=== PATIENT | male | born 1945 | race African-American/Black ===

== ENCOUNTER 2018-07-17 15:59 | Inpatient (IN) | payer BC, MEDICARE ==
[~2018-07-17] VITALS: Ht 177.8 cm; Wt 64.0 kg
--- NOTE | 2018-07-17 16:00 | NUR ---
[facility] FOR FAST HEART RATE PRIOR TO DIALYSIS. NOTED DIAPHORETIC. FEBRILE. NOTED BILATERAL AKA, COLOSTOMY BAG, PRESSURE SORE IN THE BACK WITH NOTED SOILED DRESSING. NOTED PICC LINE DOUBLE LUMEN ON RIGHT CHEST WALL. AT BS FOR EVAL. SAFETY AND COMFORT MEASURES PROVIDED. WILL MONITOR.
--- NOTE | 2018-07-17 16:20 | NUR ---
BLOOD DRAWN FROM PICC LINE. FC INITIATED NO OUTPUT NOTED PER MD TO LEAVE CATHETER IN PLACE.
--- NOTE | 2018-07-17 16:51 | NUR ---
CALLED NURSING ANIMATOR AND REQUESTED A TELE BED FOR THIS PT.
[2018-07-17] MEDS ORDERED: PIPERACILLIN /TAZOBACTAM 3.375 G in IV D5W 50 ML IV ONE (17:00)
[2018-07-17] MEDS ORDERED: VANCOMYCIN 1 GM in IV D5W 250 ML IV ONE (17:00)
[2018-07-17] MEDS ORDERED: IV NS 0.9% 1,000 ML BAG IV ONE (17:00)
[2018-07-17] MEDS ORDERED: ACETAMINOPHEN 650 MG/SUPP.RECT RC ONE ×2 (17:00→17:08)
[2018-07-17] MEDS ORDERED: ACETAMINOPHEN 120 MG/SUPP.RECT RC ONE (17:08)
[2018-07-17 17:10] LABS: BASOPHILS # (AUTO) 0.1 /CMM (0.0-0.2); BASOPHILS % (AUTO) 0.3 % (0.0-2.0); HEMATOCRIT 36 % (39-51); HEMOGLOBIN 11.1 g/dL (13.5-17.5); LYMPHOCYTES # (AUTO) 1.5 /CMM (0.8-4.8); LYMPHOCYTES % (AUTO) 6.2 % (20.0-44.0); MEAN CORPUSCULAR HGB CONC 31 g/dl (31.0-36.0); MEAN CORPUSCULAR VOLUME 88 fL (80-96); MONOCYTES # (AUTO) 1.2 /CMM (0.1-1.30); MONOCYTES % (AUTO) 4.9 % (2.0-12.0); NEUTROPHILS # (AUTO) 21.7 /CMM (1.8-8.9); NEUTROPHILS % (AUTO) 86.6 % (43.0-81.0); PLATELET COUNT (AUTO) 497 /CMM (150-450); RDW COEFFICIENT OF VARIATION 20.7 (11.5-15.0); RED BLOOD CELL COUNT(AUTO) 4.03 MIL/uL (4.5-6.0)
[2018-07-17 17:17] LABS: CALCIUM, SERUM 10.7 mg/dL (8.5-10.1); CARBON DIOXIDE 28 mmol/L (21-32); CHLORIDE 105 mmol/L (98-107); CREATININE 5.1 mg/dL (0.6-1.3); GLUCOSE 311 mg/dL (74-106); POTASSIUM 3.3 mmol/L (3.5-5.1); SODIUM SERUM 148 mmol/L (136-145)
[2018-07-17 17:19] LABS: UREA NITROGEN, BLOOD 80 mg/dL (7-18)
[2018-07-17 17:23] LABS: ALANINE AMINOTRANSFERASE 23 U/L (12-78); ALBUMIN 2.6 g/dL (3.4-5.0); ALKALINE PHOSPHATASE 164 U/L (46-116); ASPARTATE AMINOTRANSFERASE 16 U/L (15-37); BILIRUBIN,DIRECT 0.1 mg/dL (0.0-0.2); BILIRUBIN,TOTAL 0.4 mg/dL (0.2-1.0); INR 1.06 (0.85-1.15); TOTAL PROTEIN, SERUM 8.5 g/dL (6.4-8.2)
[2018-07-17 17:25] LABS: TROPONIN I < 0.017 ng/mL (0.00-0.056)
--- NOTE | 2018-07-17 18:17 | NUR ---
PT'S BUTTOCKS PRESSURE SORE DRESSING CHANGED, COVERED. KEPT CLEAN AND DRY.
[2018-07-17] MEDS ORDERED: INSU100V11 SQ (18:35)
[2018-07-17] MEDS ORDERED: ATOR40TA GT (18:35)
[2018-07-17] MEDS ORDERED: INSU100I19 SQ (18:35)
[2018-07-17] MEDS ORDERED: ALLO100T GT (18:35)
[2018-07-17] MEDS ORDERED: MIDO10TA GT (18:35)
[2018-07-17] MEDS ORDERED: TOPI25TA49 GT (18:35)
--- NOTE | 2018-07-17 18:48 | NUR ---
CALLED [facility] FOR PANEL CALL AND DR MAS WAS PAGED.
--- NOTE | 2018-07-17 18:58 | NUR ---
Della henry in [facility] - 07/17/18 at 1859 by SAMSON VIRGINIA CALDWELL HAT AND CAP OPENERLORE HERNANDEZ NP
--- NOTE | 2018-07-17 19:00 | NUR ---
PT IS ASSIGNED TO [facility] RM#: [id number], DX: SEPSIS, AND ACCEPTING MD: DR MAS.
[2018-07-17] MEDS ORDERED: IV NS 0.9% 1,000 ML IV PRN (19:02)
[2018-07-17 19:04] LABS: APPEARANCE,URINE Clear (CLEAR); BILIRUBIN,URINE SMALL (NEGATIVE); BLOOD, URINE Large Ery/uL (NEGATIVE); COLOR,URINE Yellow (YELLOW); KETONES,URINE Negative (NEGATIVE); LEUKOCYTE ESTERASE ,URINE Large (NEGATIVE); NITRITE, URINE Positive (NEGATIVE); PH,URINE 7.5 (5.0-8.0); PROTEIN,URINE >=300 mg/dl (NEGATIVE); UGLUCOSE Negative (NEGATIVE); UROBILINOGEN,URINE 0.2 EU/dL (0.2)
--- NOTE | 2018-07-17 19:17 | NUR ---
UPDATE: PT IS ASSIGNED TO [facility]#: [id number]
--- NOTE | 2018-07-17 19:24 | NUR ---
REPORT GIVEN TO MATTHEW BUSTAMANTE FOR RAMON.
[2018-07-17] MEDS ORDERED: MAG HYDROX/AL HYDROX/SIMETH 30 ML UDC PO PRN (19:30)
[2018-07-17] MEDS ORDERED: ZOLPIDEM TARTRATE 5 MG TABLET PO PRN (19:30)
[2018-07-17] MEDS ORDERED: MAGNESIUM HYDROXIDE 30 ML UDC PO PRN (19:30)
[2018-07-17] MEDS ORDERED: ONDANSETRON HCL/PF 4 MG/2 ML VIAL IVP PRN (19:30)
[2018-07-17 19:32] LABS: BACTERIA,URINE 4+ /HPF (None Seen); RBC,URINE TOO NUMEROUS TO COUN /HPF (0-2); SQUAMOUS EPITHELIAL CELL,UR Few /HPF (None Seen); WBC,URINE TOO NUMEROUS TO COUN /HPF (0-3)
[2018-07-17 20:00] VITALS: BP 136/84
[2018-07-17] MEDS ORDERED: FEE PK DOSING 1 MIN EA MC ONE (20:04)
--- NOTE | 2018-07-17 20:20 | NUR ---
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, RIGHT IJ CENTRAL VENOUS CATH IN PLACED, WITH TRACH IN COOL AEROSOL, PATIENT WITH EYES OPEN, NONVERBAL, NOT ORIENTED, BREATHING EVEN AND UNLABORED, NO S/S OF ANY SOB/ACUTE DISTRESS NOTED AT THIS TIME, ABDOMEN SOFT AND NONDISTENDED, NOTED GT IN PLACED SLIGHTLY BLEEDING AROUND SITE, NO REDISUAL AT THIS TIME, COLOSTOMY IN PLACE WITH MINIMAL BROWNISH COLOR STOOL, F/SHASHI PLACE NOTED, PATENTCY INTACT NO OUTPUT NOTED SINCE HD PATIENT BUT NOTED 5ML YELLOW COLOR URINE, WOUNDS CLEAN WITH NORMAL SALINE AND PACKED AND WELL DRESSED, NOTED ACTIVE BLEEDING I WOUNDS, DR MAS AT BEDSIDE UPON ADMISSION AND AWARE ABOUT THIS, WITH NNO AT THIS TIME, BED BATH GIVEN UPON ADMISSION, DRY AND CLEAN, BED LOCKED AND LOW POSITION, HOB ELEVATED FOR ASPIRATION PRECAUTIONS, REPOSITION PROVIDED, WILL CONTINUE TO MONITOR CLOSELY.
[2018-07-17] MEDS: MIDODRINE HCL (5MG) 5 MG TABLET GT SCH (20:30)
[2018-07-17] MEDS: ALLOPURINOL 100 MG TABLET GT SCH (21:28)
[2018-07-17] MEDS: ATORVASTATIN 40 MG TABLET GT SCH (21:28)
[2018-07-17] MEDS: TOPIRAMATE 25 MG TABLET GT SCH (21:29)
[2018-07-17] MEDS: INSULIN DETEMIR 100 UNIT/ML CARTRIDGE SQ SCH (21:47)
[2018-07-17] MEDS ORDERED: NEPRO 1,000 ML BOTTLE GT SCH (22:30)
--- NOTE | 2018-07-17 23:34 | NUR ---
PT REC'D TRACH ON T-PIECE 4LPM. PT PLACED ON COOL AEROSOL 28% 5LPM. NO RESP DISTRESS NOTED. SX'D MOD AMT OF THICK FROTHY WHITE SECRETIONS. TRACH PATENT AND SECURED. AMBU BAG BEDSIDE WILL CONTINUE TO MONITOR. Addendum: 07/18/18 at 0512 by ALISHA NICOLAS RT Amended: Links added.
[2018-07-17] MEDS: PIPERACILLIN /TAZOBACTAM 2.25 G in IV D5W 50 ML IV SCH (23:52)
[2018-07-17] MEDS: HYDROCODONE/APAP 5/325MG 1 EACH TABLET PO PRN (23:52)
--- NOTE | 2018-07-17 23:56 | NUR ---
RN PT DIABETIC, CASSIUS MCMILLAN AWARE WITH NEW ORDER OF ACCUCHECK Q 6HRS GTF WITH MILD SLIDING SCALE.
[2018-07-18] VITALS (88 sets, daily range): BP systolic 68–140; BP diastolic 34–79
[2018-07-18] MEDS ORDERED: DEXTROSE 50%-WATER 50 ML DISP.SYRIN IV PRN
[2018-07-18] MEDS: BLOOD SUGAR DIAGNOSTIC 1 EACH STRIP IN SCH ×4 (00:17→17:15)
[2018-07-18] MEDS: INSULIN REGULAR, HUMAN 100 UNIT/ML 3 ML VIAL SQ PRN ×4 (00:22→17:27)
--- NOTE | 2018-07-18 00:40 | NUR ---
RN TD NOTES, NOTED PATIENT WITH HR 126, BP 78/37, CHECKED RECTAL TEMP AND 99.6, NOTES EXCESSIVE BLEEDING FROM THE SACRAL AND RIGHT BUTTOCKS WOUND, NOTED WITH RAPID BREATHING AND O2 94%, RT PLACED PATIENT IN 35% FIO2, AT 8L, CALLED CASSIUS, PHOTO MACHINE OPERATOR AND RECEIVED ORDER TO TRANSFER PATIENT TO ICU STAT H&H, AND START LEVOPHED DRIP AND TITRATE TO KEEP SBP GREATER THAN 90. NOTED AND CARRIED OUT ON CONTINUOUS MONITOR.
--- NOTE | 2018-07-18 00:50 | NUR ---
RN [facility] NOTES, GAVE REPORT TO SUSHIL FROM ICU AND ENDORSED CONTINUITY OF CARE AND LEVOPHED DRIP ADMINISTRATION.
--- NOTE | 2018-07-18 00:55 | NUR ---
RN [facility] NOTES, TRANSFERRED PATIENT TO ICU AT THIS TIME IN COMPANY OF 3 RNS, AND RT FOR CONTINUITY OF CARE, PATIENT PLACED IN ROOM 252, SUSHIL AND 2RNS AT BEDSIDE.
--- NOTE | 2018-07-18 01:00 | NUR ---
PIPELINE CONSTRUCTION INSPECTOR RCD PT FROM [facility] FOR HYPOTENSION AND BLEEDING FROM SACRAL AREA. PT IS AWAKE APHASIC DOES NOT FOLLOW COMMANDS. 8L O2 VIA T PIECE. ST 120s ON MONITOR. G TUBE CLAMPED. CONTINUE TO MONITOR.
[2018-07-18 01:14] LABS: BASOPHILS # (AUTO) 0.1 /CMM (0.0-0.2); BASOPHILS % (AUTO) 0.3 % (0.0-2.0); EOSINOPHILS % (AUTO) 1.9 % (0.0-6.0); HEMATOCRIT 29 % (39-51); HEMOGLOBIN 8.8 g/dL (13.5-17.5); LYMPHOCYTES # (AUTO) 2.1 /CMM (0.8-4.8); LYMPHOCYTES % (AUTO) 8.5 % (20.0-44.0); MEAN CORPUSCULAR HGB CONC 30 g/dl (31.0-36.0); MEAN CORPUSCULAR VOLUME 90 fL (80-96); MONOCYTES # (AUTO) 1.1 /CMM (0.1-1.30); MONOCYTES % (AUTO) 4.5 % (2.0-12.0); NEUTROPHILS # (AUTO) 21.3 /CMM (1.8-8.9); NEUTROPHILS % (AUTO) 84.8 % (43.0-81.0); PLATELET COUNT (AUTO) 422 /CMM (150-450); RDW COEFFICIENT OF VARIATION 21.4 (11.5-15.0); RED BLOOD CELL COUNT(AUTO) 3.21 MIL/uL (4.5-6.0); WHITE BLOOD COUNT (AUTO) 25.2 K/uL (4.3-11.0)
[2018-07-18] MEDS ORDERED: NOREPINEPHRINE 4 MG/4 ML AMPUL IV ONE (01:22)
[2018-07-18 01:30] LABS: ALANINE AMINOTRANSFERASE 17 U/L (12-78); ALBUMIN 2.2 g/dL (3.4-5.0); ALKALINE PHOSPHATASE 131 U/L (46-116); ASPARTATE AMINOTRANSFERASE 19 U/L (15-37); BILIRUBIN,TOTAL 0.4 mg/dL (0.2-1.0); CALCIUM, SERUM 9.7 mg/dL (8.5-10.1); CARBON DIOXIDE 22 mmol/L (21-32); CHLORIDE 106 mmol/L (98-107); CREATININE 4.9 mg/dL (0.6-1.3); GLUCOSE 333 mg/dL (74-106); MAGNESIUM 2.3 mg/dL (1.8-2.4); PHOSPHORUS 4.2 mg/dL (2.5-4.9); POTASSIUM 3.4 mmol/L (3.5-5.1); SODIUM SERUM 148 mmol/L (136-145); TOTAL PROTEIN, SERUM 7.3 g/dL (6.4-8.2)
[2018-07-18] MEDS: NOREPINEPHRINE 16 MG in IV D5W 500 ML IV PRN ×2 (01:31→09:51)
[2018-07-18 01:32] LABS: CHOLESTEROL 72 mg/dL (<200); HDL CHOLESTEROL 22 mg/dL (40-60); LDL 37 mg/dL (0-99); TRIGLYCERIDES 92 mg/dL (30-150)
[2018-07-18 01:44] LABS: UREA NITROGEN, BLOOD 86 mg/dL (7-18)
[2018-07-18 01:49] LABS: EOSINOPHILS % (MANUAL) 3 % (0-4); LYMPHOCYTES % (MANUAL) 6 % (16-48); MONOCYTES % (MANUAL) 2 % (0-11.0); NEUTROPHILS % (MANUAL) 89 (42-76)
--- NOTE | 2018-07-18 07:02 | NUR ---
MARKETING OPERATIONS CONSULTANT STARTED LEVOPHED AT 1 MCG/MIN FOR SBP 79; GOAL TO MAINTAIN SBP >90. CONTINUE TO MONITOR. Addendum: 07/18/18 at 0703 by SUSHIL MENEZES RN [id number]
--- NOTE | 2018-07-18 07:15 | NUR ---
RECEIVED PATIENT. AWAKE AND ALERT AT TIMES FOLLOWS COMMANDS. PATIENT T PIECE ON 5LPM TOLERATING WELL. NO NOTED SOB, DIFFICULTY BREATHING OR PAIN. PORTEX 7. TELE SINUS TACH 115; PER RN IMPROVED FROM TACHY 130'S. PENDING WOUND CONSULT FOR EXTENSIVE WOUND NOTED ON ANJANA/SACRUM/BUTTOCKS. NEPHRO RUNNING PER ORDER TOLERATING WELL; PENDING DIETARY CONSULT. LUE FISTULA BRUIT AND THRILL PRESENT. PATIENT IJ PICC IN PLACE C/D/I/P/BLOOD RETURN. IV FLUIDS RUNNING PER ORDER. PATIENT LEVO RUNNING PER ORDER WILL TITRATE PER PROTOCOL. PATIENT SKIN SAFETY, AND ASPIRATION PRECAUTIONS IN PLACE. WILL ROUND
[2018-07-18] MEDS: PIPERACILLIN /TAZOBACTAM 2.25 G in IV D5W 50 ML IV SCH ×2 (07:30→16:20)
--- NOTE | 2018-07-18 07:34 | NUR ---
dr fowler at bedside. aware of patient am labs at 0100. per md patient pending nephro eval for hd orders. pending wound consult for back wound; possible surgery eval pending eval. monitor h&h transfuse if under 7hgb.
--- NOTE | 2018-07-18 07:36 | NUR ---
per wound rn sunshine juarez aware of consult and will see patient.
[2018-07-18] MEDS: ACETAMINOPHEN 325 MG TABLET PO PRN (08:20)
[2018-07-18] MEDS: TOPIRAMATE 25 MG TABLET GT SCH (08:20)
[2018-07-18] MEDS: ALLOPURINOL 100 MG TABLET GT SCH (08:20)
[2018-07-18] MEDS: MIDODRINE HCL (5MG) 5 MG TABLET GT SCH ×3 (08:21→17:15)
[2018-07-18] MEDS: Z GUARD REMEDY 2 OZ OINT TP PRN (08:22)
[2018-07-18] MEDS ORDERED: NEPRO 1,000 ML BOTTLE GT SCH (08:30)
--- NOTE | 2018-07-18 08:40 | NUR ---
RT PATIENT REC'D TRACHED ON COOL AEROSOL TOLERATED WELL. PATIENT NON RESPONSIVE, NO SOB NOTED. SUCTIONED WITH SMALL AMT OF PALE SEMITHICK SECRETIONS.
--- NOTE | 2018-07-18 08:57 | NUR ---
CHANTELL SANDOVAL AT BEDSIDE. PATIENT SCHEDULED FOR HD TODAY.
--- NOTE | 2018-07-18 09:06 | NUR ---
PER PLEASE DC PATIENT PALOMARES CATH.
--- NOTE | 2018-07-18 09:13 | NUR ---
PALOMARES CATH REMOVED. CATH TIP INTACT. NO COMPLICATIONS NOTED
[2018-07-18] MEDS ORDERED: POTASSIUM CHLORIDE 20 MEQ TAB.PRT.SR PO ONE (09:30)
[2018-07-18] MEDS ORDERED: EPOETIN ALFA (10,000 UNIT) 10,000 UNIT/ML VIAL IV ONE (11:00)
[2018-07-18] MEDS ORDERED: DAKINS QUARTER STRENGTH (0.125%) 480 ML BOTTLE TOP PRN (13:00)
[2018-07-18] MEDS: MUPIROCIN OINT 2% 22 GM TUBE SCH ×2 (13:00→21:32)
--- NOTE | 2018-07-18 13:02 | NUR ---
HD COMPLETED. NO FLUID REMOVED. PATIENT TOLERATED WELL. BP STABLE. PER [place] FAMILY AND CONSUMER SCIENCES TEACHER SACRAL/BUTTOCK WOUNDS APPLY DAKINS SOAKED GAUZE AND COVER WITH DRY DRESSING. PER FAMILY AND CONSUMER SCIENCES TEACHER WILL PLAN FOR DEBRIDEMENT. CHANGE DAILY/PRN SOILING.
[2018-07-18] MEDS: SOD FERRIC GLUC 125 MG in IV NS 0.9% 100 ML IV SCH (13:48)
[2018-07-18] MEDS ORDERED: VANCOMYCIN 1 GM in IV D5W 250 ML IV ONE (14:00)
[2018-07-18] MEDS ORDERED: DAKINS QUARTER STRENGTH (0.125%) 480 ML BOTTLE TOP SCH (15:30)
--- NOTE | 2018-07-18 16:20 | NUR ---
BED BATH COMPLETED AGAIN, WOUND CARE PER ORDER. PATIENT DIAPHORETIC AGAIN. COOLING MEASURES INITIATED. CORE TEMP MONITOR STARTED. 100.4 WILL MONITOR.
[2018-07-18] MEDS: LACTOBACILLUS RHAMNOSUS GG 1 EACH CAP.SPRINK GT SCH (17:15)
--- NOTE | 2018-07-18 18:45 | NUR ---
PATIENT STABLE. TEMP DECREASING WITH COOLING MEASURES 99.0 AT THIS TIME. LEVO PAUSED AND PATIENT TOLERATING AT THIS TIME CONTINUING TO MONITOR. TUBE FEEDING PER ORDER NO RESIDUAL NOTED. COLOSTOMY IN PLACE AND C/D/I. IV SITE C/D/I/P GOOD BLOOD RETURN. LEFT UA FISTULA POSITIBE BRUIT/THRILL. PATIENT HAS COPIOUS AMOUNTS OF THICK SECRETION NEEDING FREQUENT SUCTIONING. PATIENT SAFETY, ASPIRATION, AND SKIN PRECAUTIONS IN PLACE AND MONITORED. ISOLATION MONITORED. PETER UPDATED ON PATIENT CONDITION, MED, VS. NO NEW ORDERS AT THIS TIME
[2018-07-18] MEDS ORDERED: VANCOMYCIN 500 MG in IV D5W 100 ML IV PRN (20:00)
--- NOTE | 2018-07-18 20:06 | NUR ---
PT RECEIVED TRACHED PTX 7 ON COOL AEROSOL 8L 35%. SX'D FOR MOD AMT OF THIN WHITE SECRETIONS. B/S CL/DM. O2 SAT 97%. WILL CONTINUE TO MONITOR. Addendum: 07/18/18 at 2008 by BIRGIT BYRNE RT Amended: Links added.
[2018-07-18] MEDS ORDERED: MUPIROCIN OINT 2% 22 GM TUBE SCH (21:00)
[2018-07-18] MEDS: ATORVASTATIN 40 MG TABLET GT SCH (21:31)
[2018-07-18] MEDS: MEROPENEM 500 MG in IV NS 0.9% 50 ML IV SCH (21:32)
[2018-07-18] MEDS: INSULIN DETEMIR 100 UNIT/ML CARTRIDGE SQ SCH (21:41)
[2018-07-19] VITALS (67 sets, daily range): BP systolic 95–133; BP diastolic 38–72
[2018-07-19] MEDS: BLOOD SUGAR DIAGNOSTIC 1 EACH STRIP IN SCH ×4 (00:41→18:10)
[2018-07-19] MEDS: INSULIN REGULAR, HUMAN 100 UNIT/ML 3 ML VIAL SQ PRN ×4 (00:45→18:11)
[2018-07-19 04:39] LABS: BASOPHILS # (AUTO) 0.1 /CMM (0.0-0.2); BASOPHILS % (AUTO) 0.4 % (0.0-2.0); EOSINOPHILS % (AUTO) 3.3 % (0.0-6.0); HEMATOCRIT 25 % (39-51); HEMOGLOBIN 7.7 g/dL (13.5-17.5); LYMPHOCYTES # (AUTO) 2.4 /CMM (0.8-4.8); LYMPHOCYTES % (AUTO) 9.4 % (20.0-44.0); MEAN CORPUSCULAR HGB CONC 30 g/dl (31.0-36.0); MEAN CORPUSCULAR VOLUME 90 fL (80-96); MONOCYTES # (AUTO) 1.1 /CMM (0.1-1.30); MONOCYTES % (AUTO) 4.4 % (2.0-12.0); NEUTROPHILS # (AUTO) 21.3 /CMM (1.8-8.9); NEUTROPHILS % (AUTO) 82.5 % (43.0-81.0); PLATELET COUNT (AUTO) 402 /CMM (150-450); RDW COEFFICIENT OF VARIATION 22.3 (11.5-15.0); RED BLOOD CELL COUNT(AUTO) 2.79 MIL/uL (4.5-6.0); WHITE BLOOD COUNT (AUTO) 25.9 K/uL (4.3-11.0)
[2018-07-19 04:47] LABS: CALCIUM, SERUM 9.5 mg/dL (8.5-10.1); CARBON DIOXIDE 26 mmol/L (21-32); CHLORIDE 107 mmol/L (98-107); CREATININE 3.8 mg/dL (0.6-1.3); GLUCOSE 296 mg/dL (74-106); PHOSPHORUS 3.3 mg/dL (2.5-4.9); POTASSIUM 3.9 mmol/L (3.5-5.1); SODIUM SERUM 144 mmol/L (136-145); UREA NITROGEN, BLOOD 62 mg/dL (7-18)
--- NOTE | 2018-07-19 06:30 | NUR ---
ASSISTANT PROFESSOR OF RADIOLOGY - REC'D PT. ON T-PIECE AT 40%/8L. RHONCHI AUSC. TO ALL LOBES. PT.IS ISOLATION: MRSA/NARES. AFEBRILE FOR SHIFT. PT. IS A BAKA. ALL EXT.X 4 ARE ELEVATED ON PILLOWS. PT.IS VERY RIGID TO REPOSITION. STAGE IV TO SACRAL/BUTTOCK AREAS. A COMPLETE BEDBATH ADM. WITH TOTAL SKIN/WOUND CARE ADM. COLOSTOMY BAG CHANGED. ANURIC. PT.IS PEGGED WITH NEPRO INFUSING AT 50CC/HR. GOAL. PT. USES FACIAL EXPRESSIONS TO COMMUNICATE. PT. HAS ACCUCHECKS Q 6 HRS & MN & 6AM- BOTH WERE IN THE 200'S. PT.HAS +BRUIT-+THRILL. CONT.POC.
--- NOTE | 2018-07-19 07:28 | NUR ---
RECEIVED PATIENT. AWAKE AND ALERT AT TIMES FOLLOWS COMMANDS; PASSIVE. PATIENT T PIECE ON 8LPM TOLERATING WELL.99% AT THIS TIME. NO NOTED SOB, DIFFICULTY BREATHING OR PAIN. PORTEX 7. PATIENT HAS LARGE AMOUNTS OF THICK YELLOW SECRETION REQUIRING FREQUENT SUCTIONING. TELE SINUS TACH 104 TACHYCARDIA IMPROVED OVERNIGHT PER RN. PENDING WOUND DEBRIDEMENT TODAY FOR EXTENSIVE WOUND NOTED ON SACRUM/BUTTOCKS. NEPHRO RUNNING PER ORDER TOLERATING WELL. LUE FISTULA BRUIT AND THRILL PRESENT. PATIENT IJ PICC IN PLACE C/D/I/P/BLOOD RETURN. PATIENT STILL OFF LEVO SINCE 1814 LAST NIGHT. PATIENT SKIN SAFETY, AND ASPIRATION PRECAUTIONS IN PLACE. WILL ROUND PRN
[2018-07-19] MEDS: NEPRO 1,000 ML BOTTLE GT SCH (07:43)
--- NOTE | 2018-07-19 07:55 | NUR ---
DR MAS AT BEDSIDE. MD AWARE OF PATIENT AM LABS NO NEED FOR BLOOD TX YET. PER MD CHECK FOR CDIFF STOOL PATIENT HAS COME IN WITH LOOSE STOOL. CHANGE INSULIN COVERAGE TO AGGRESSIVE SLIDING SCALE FOR ELEVATED BS. OBTAIN RESPIRATORY CULTURE.
[2018-07-19] MEDS ORDERED: DEXTROSE 50%-WATER 50 ML DISP.SYRIN IV PRN (08:00)
[2018-07-19] MEDS: TOPIRAMATE 25 MG TABLET GT SCH (08:16)
[2018-07-19] MEDS: MIDODRINE HCL (5MG) 5 MG TABLET GT SCH ×3 (08:16→16:01)
[2018-07-19] MEDS: ALLOPURINOL 100 MG TABLET GT SCH (08:16)
[2018-07-19] MEDS: LACTOBACILLUS RHAMNOSUS GG 1 EACH CAP.SPRINK GT SCH ×2 (08:17→16:00)
[2018-07-19] MEDS: Z GUARD REMEDY 2 OZ OINT TP PRN (08:17)
[2018-07-19] MEDS: MEROPENEM 500 MG in IV NS 0.9% 50 ML IV SCH ×2 (08:18→21:35)
--- NOTE | 2018-07-19 08:19 | NUR ---
WOUND CARE CONSULT WOUND CARE RECEIVED CONSULT FOR WOUNDS TO SACRUM, BUTTOCKS AND BACK. WOUND CARE WILL DEFER CONSULT AND ALL TREATMENT PLANS TO SURGICAL TEAM WHO ARE CURRENTLY FOLLOWING. PATIENT WITH INGRID AT 10, ALL PRESSURE ULCER PREVENTION MEASURES ARE NOTED TO BE IN PLACE. WILL SEE PRN.
[2018-07-19] MEDS: MUPIROCIN OINT 2% 22 GM TUBE SCH ×2 (08:22→21:38)
[2018-07-19] MEDS: DAKINS QUARTER STRENGTH (0.125%) 480 ML BOTTLE TOP SCH (08:23)
--- NOTE | 2018-07-19 08:49 | NUR ---
RT AWARE OF RESP CX. NOT ENOUGH OF A SAMPLE FOR C DIFF WILL MONITOR
[2018-07-19] MEDS ORDERED: SILVER NITRATE APPLICATOR 1 EA BOX TP ONE (10:00)
[2018-07-19] MEDS ORDERED: LIDOCAINE 1%-EPI 1:100,000 20 ML VIAL TP ONE (10:00)
--- NOTE | 2018-07-19 12:00 | NUR ---
STOOL SAMPLE TAKEN TO LAB.
[2018-07-19] MEDS: FLUCONAZOLE IN NS 100 MG in PREMIX 1 EA IV SCH ×2 (12:19)
--- NOTE | 2018-07-19 13:18 | NUR ---
DR NELSON AND TOBI RODRIGUEZ AT BEDSIDE FOR WOUND DEBRIDEMENT. S/P DEBRIDEMENT PHOTOS TAKEN. PATIENT TOLERATED WELL VSS. WOUND CARE ORDERED. MINIMAL BLEEDING NOTED WILL MONITOR.
[2018-07-19] MEDS: SOD FERRIC GLUC 125 MG in IV NS 0.9% 100 ML IV SCH (15:37)
[2018-07-19] MEDS: ACETAMINOPHEN 325 MG TABLET PO PRN (18:10)
--- NOTE | 2018-07-19 18:42 | NUR ---
PATIENT STABLE. TEMP DECREASING WITH COOLING MEASURES 99.3 AT THIS TIME S/P TYLENOL. PATIENT BP STABLE THROUGHOUT THE DAY OFF LEVO SINCE 07/19 1800. TUBE FEEDING PER ORDER NO RESIDUAL NOTED. COLOSTOMY IN PLACE AND C/D/I. IV SITE C/D/I/P GOOD BLOOD RETURN. LEFT UA FISTULA POSITIVE BRUIT/THRILL. PATIENT HAS COPIOUS AMOUNTS OF THICK SECRETION NEEDING FREQUENT SUCTIONING 250ML THROUGHOUT SHIFT. PATIENT SAFETY, ASPIRATION, AND SKIN PRECAUTIONS IN PLACE AND MONITORED. ISOLATION MONITORED. CARE WILL BE ENDORSED TO RN FOR RAMON
--- NOTE | 2018-07-19 19:00 | NUR ---
Received patient on semi wing's position,awake,responds to name calling but very passive,moves upper extremities with resistance when moved arms,margo AKA. G tube with on going feeding,Aspiration precaution observed.Trache with 35 % O2 with copious amount of thick,clear secretions.Comfort care done.On contact precaution for MRSA (nares),pending C . diff result.
[2018-07-19] MEDS: ATORVASTATIN 40 MG TABLET GT SCH (21:34)
[2018-07-19] MEDS: INSULIN DETEMIR 100 UNIT/ML CARTRIDGE SQ SCH (21:37)
[2018-07-20] VITALS (23 sets, daily range): BP systolic 92–128; BP diastolic 42–56
--- NOTE | 2018-07-20 | NUR ---
Status unchanged,stable,not in any distress,V/S stable.remains afebrile,awake,alert,still with copious secretions,pulmonary toileting done.Turing q 2 hrs continued,off loading pressure points. 0330 AM care done,sacral decub care done ,dressings changed.
[2018-07-20] MEDS: INSULIN REGULAR, HUMAN 100 UNIT/ML 3 ML VIAL SQ PRN ×2 (01:03→17:55)
[2018-07-20] MEDS: NEPRO 1,000 ML BOTTLE GT SCH (03:12)
[2018-07-20] MEDS: BLOOD SUGAR DIAGNOSTIC 1 EACH STRIP IN SCH ×4 (06:14→17:54)
[2018-07-20 06:31] LABS: BASOPHILS # (AUTO) 0.1 /CMM (0.0-0.2); BASOPHILS % (AUTO) 0.3 % (0.0-2.0); HEMATOCRIT 23 % (39-51); LYMPHOCYTES # (AUTO) 1.9 /CMM (0.8-4.8); LYMPHOCYTES % (AUTO) 7.8 % (20.0-44.0); MEAN CORPUSCULAR HGB CONC 30 g/dl (31.0-36.0); MEAN CORPUSCULAR VOLUME 91 fL (80-96); MONOCYTES # (AUTO) 1.1 /CMM (0.1-1.30); MONOCYTES % (AUTO) 4.7 % (2.0-12.0); NEUTROPHILS # (AUTO) 19.9 /CMM (1.8-8.9); NEUTROPHILS % (AUTO) 83.2 % (43.0-81.0); PLATELET COUNT (AUTO) 414 /CMM (150-450); RDW COEFFICIENT OF VARIATION 21.7 (11.5-15.0); RED BLOOD CELL COUNT(AUTO) 2.57 MIL/uL (4.5-6.0); WHITE BLOOD COUNT (AUTO) 23.9 K/uL (4.3-11.0)
[2018-07-20 06:52] LABS: CALCIUM, SERUM 9.5 mg/dL (8.5-10.1); CARBON DIOXIDE 25 mmol/L (21-32); CHLORIDE 107 mmol/L (98-107); CREATININE 4.2 mg/dL (0.6-1.3); GLUCOSE 164 mg/dL (74-106); PHOSPHORUS 3.8 mg/dL (2.5-4.9); SODIUM SERUM 146 mmol/L (136-145); UREA NITROGEN, BLOOD 79 mg/dL (7-18)
--- NOTE | 2018-07-20 07:00 | NUR ---
Remains stable,report given to day shift RN GUILLERMO.
--- NOTE | 2018-07-20 08:10 | NUR ---
RT PT RECEIVED WITH A PORTEX 7 TRACH ON COOL AEROSOL T-PIECE. PT IS AWAKE AND RESPOND TO STIMULI WHEN SX'D. NO RESPIRATORY DISTRESS NOTED AT THIS TIME, WILL CONTINUE TO MONITOR. Addendum: 07/20/18 at 0836 by MIREILLE RICHEY RT Amended: Links added.
[2018-07-20] MEDS: ALLOPURINOL 100 MG TABLET GT SCH (08:17)
[2018-07-20] MEDS: LACTOBACILLUS RHAMNOSUS GG 1 EACH CAP.SPRINK GT SCH ×2 (08:17→17:54)
[2018-07-20] MEDS: TOPIRAMATE 25 MG TABLET GT SCH (08:17)
[2018-07-20] MEDS: MEROPENEM 500 MG in IV NS 0.9% 50 ML IV SCH ×2 (08:17→21:06)
[2018-07-20] MEDS: MIDODRINE HCL (5MG) 5 MG TABLET GT SCH ×3 (08:17→17:54)
[2018-07-20] MEDS: DAKINS QUARTER STRENGTH (0.125%) 480 ML BOTTLE TOP SCH (08:18)
[2018-07-20] MEDS: MUPIROCIN OINT 2% 22 GM TUBE SCH ×2 (08:18→21:10)
--- NOTE | 2018-07-20 09:57 | NUR ---
RN NOTE 0720: Received patient opens eyes but does not follow commands. With trache to cool aerosol, tolerated, no respiratory distress noted at this time. Temp 99.8. ST 110's on the monitor. SBP >100's without pressors. GT intact, feeding tolerated well, no residuals. No S/S bleeding noted at this time. Isolation precaution for MRSA nares, maintained and observed. 0810: S/E by Dr. Heart, made aware for H/H 7.0/, no new order at this time, verbalized patient can go to [facility] after HD, made CN aware. 0950: No any significant changes noted at this time. Kept clean, warm and dry. Needs attended. HD ongoing, will continue to monitor.
[2018-07-20] MEDS: FLUCONAZOLE IN NS 100 MG in PREMIX 1 EA IV SCH ×2 (12:49)
--- NOTE | 2018-07-20 13:23 | NUR ---
RN NOTE Done with HD, tolerated, noted with borderline 90's SBP. With 500mL output.
[2018-07-20] MEDS: SOD FERRIC GLUC 125 MG in IV NS 0.9% 100 ML IV SCH (14:11)
--- NOTE | 2018-07-20 17:12 | NUR ---
confirmed with Miguel @ [facility], patient receives hemodialysis every TTHS @ 3:15pm [phone]. Patient is chronic trach, plan to dc back to [facility] once discharge [phone] Addendum: 07/20/18 at 1714 by PRANAY GONSALEZ RN Amended: Links added.
--- NOTE | 2018-07-20 18:19 | NUR ---
RN NOTE No any significant changes noted. Kept clean, warm and dry. Needs attended.
--- NOTE | 2018-07-20 19:15 | NUR ---
KAYAKING INSTRUCTOR: RECEIVED PT. ON C/A AT 28% FI02 VIA T-PIECE. OPENS EYES AND TRACKS, UNABLE TO FOLLOW SIMPLE COMMANDS. NO ACUTE DISTRESS, NO EVIDENCE OF DISCOMFORT. ST ON CROZER. GT IN PLACE RUNNING NEPRO AT 50ML/HR WT NO RESIDUAL. LEFT UPPER ARM AV SHUNT WT BRUIT AND THRILL NOTED. RT. IJ TLC IN PLACE WT NO S/S OF COMPLICATIONS. SUCTIONED LARGE AMT. OF THIN WHITE FROTHY SECRETIONS. HOB AT 35 DEGREES. WILL GIVE REPORT TO RN FOR [facility] TRANSFER.
[2018-07-20] MEDS: MICAFUNGIN SODIUM 100 MG in IV NS 0.9% 100 ML IV SCH (19:35)
--- NOTE | 2018-07-20 19:49 | NUR ---
COMPRESSOR STATION ENGINEER CHIEF: REPORT GIVEN TO ROBBY GENAO.
--- NOTE | 2018-07-20 20:00 | NUR ---
FIBERGLASS PIPE COVERING SUPERVISOR: TRANSFERRED TO [facility] ROOM 118-2 WT RT AND RN IN WT NO CHANGE IN CONDITION.
--- NOTE | 2018-07-20 20:10 | NUR ---
[facility]/RN NOTES: PT. TRANSFERRED FROM ICU W/ BED W/ ACLS PROTOCOL W/ RN KIANNA. PT. ALERT TO NAME , TRACKS NON VERBAL. NO FACIAL GRIMACES OR MOANING NOTED. W/ COOL AEROSOL 28 % W/ 8LPM O2 SAT 100%. W/ TELE MONITOR W/ ST 104. W/ GTF OF NEPRO TOLERATING WELL W/ NO RESIDUAL NOTED. HAS BERNIE AV FISTULA W/ DRESSING C/D/I. W/ RIGHT IJ DOUBLE LUMEN W/ DRESSING C/D/I . NOTED BILATERAL AKA. HAS COLOSTOMY W/ BROWN STOOL. ON CONTACT ISOLATION. ASPIRATION PRECAUTION MAINTAINED. WILL CONTINUE TO MONITOR.
[2018-07-20] MEDS ORDERED: MUPIROCIN OINT 2% 22 GM TUBE SCH (21:00)
[2018-07-20] MEDS: INSULIN DETEMIR 100 UNIT/ML CARTRIDGE SQ SCH (21:05)
[2018-07-20] MEDS: ATORVASTATIN 40 MG TABLET GT SCH (21:06)
--- NOTE | 2018-07-20 23:23 | NUR ---
PT RECEIVED WITH A PORTEX 7 TRACH ON COOL AEROSOL 35% 8L . PT IS AWAKE AND RESPOND TO STIMULI WHEN SUCTION. NO RESPIRATORY DISTRESS NOTED AT THIS TIME, WILL CONTINUE TO MONITOR.
[2018-07-21] VITALS: BP 123/47
[2018-07-21] MEDS: BLOOD SUGAR DIAGNOSTIC 1 EACH STRIP IN SCH ×5 (00:06→23:49)
[2018-07-21] MEDS: INSULIN REGULAR, HUMAN 100 UNIT/ML 3 ML VIAL SQ PRN ×5 (00:09→23:51)
[2018-07-21 04:00] VITALS: BP 131/58
[2018-07-21] MEDS: NEPRO 1,000 ML BOTTLE GT SCH ×2 (04:35→23:52)
--- NOTE | 2018-07-21 07:00 | NUR ---
RN NOTES RECEIVED PT ON BED, ALERT/ NONVERBAL , TRACH CARE DONE, ON COOL AEROSOL, NO SOB NOTED, ON TELE ST HR IN 100'S, NEPRO AT 50CC/HR RUNNING VIA GT , NO RESIDUAL NOTED, TOLERATING WELL , R IJ PICC LINE ,CLEAN,DRY AND INTACT, SR UP x3, CALL LIGHT WITHIN EASY REACH, BED LOCKED AND IN LOWEST POSITION, CONTINUE TO MONITOR .
[2018-07-21 07:07] LABS: CALCIUM, SERUM 9.3 mg/dL (8.5-10.1); CARBON DIOXIDE 28 mmol/L (21-32); CHLORIDE 103 mmol/L (98-107); CREATININE 2.8 mg/dL (0.6-1.3); GLUCOSE 143 mg/dL (74-106); PHOSPHORUS 2.5 mg/dL (2.5-4.9); POTASSIUM 3.7 mmol/L (3.5-5.1); SODIUM SERUM 142 mmol/L (136-145); UREA NITROGEN, BLOOD 39 mg/dL (7-18)
--- NOTE | 2018-07-21 07:28 | NUR ---
[facility]/RN NOTES: REPORT GIVEN TO NEXT SHIFT NURSE FOR RAMON.
[2018-07-21 07:30] LABS: BASOPHILS # (AUTO) 0.1 /CMM (0.0-0.2); BASOPHILS % (AUTO) 0.2 % (0.0-2.0); EOSINOPHILS % (AUTO) 3.3 % (0.0-6.0); HEMATOCRIT 26 % (39-51); HEMOGLOBIN 8.1 g/dL (13.5-17.5); LYMPHOCYTES % (AUTO) 9.6 % (20.0-44.0); MEAN CORPUSCULAR HGB CONC 31 g/dl (31.0-36.0); MEAN CORPUSCULAR VOLUME 91 fL (80-96); MONOCYTES # (AUTO) 1.3 /CMM (0.1-1.30); NEUTROPHILS # (AUTO) 17.3 /CMM (1.8-8.9); NEUTROPHILS % (AUTO) 80.9 % (43.0-81.0); PLATELET COUNT (AUTO) 374 /CMM (150-450); RDW COEFFICIENT OF VARIATION 22.3 (11.5-15.0); RED BLOOD CELL COUNT(AUTO) 2.87 MIL/uL (4.5-6.0); WHITE BLOOD COUNT (AUTO) 21.3 K/uL (4.3-11.0)
[2018-07-21 08:00] VITALS: BP 130/50
[2018-07-21] MEDS: LACTOBACILLUS RHAMNOSUS GG 1 EACH CAP.SPRINK GT SCH ×2 (08:22→16:29)
[2018-07-21] MEDS: TOPIRAMATE 25 MG TABLET GT SCH (08:22)
[2018-07-21] MEDS: ALLOPURINOL 100 MG TABLET GT SCH (08:22)
[2018-07-21] MEDS: MEROPENEM 500 MG in IV NS 0.9% 50 ML IV SCH ×2 (08:23→20:56)
[2018-07-21] MEDS: MIDODRINE HCL (5MG) 5 MG TABLET GT SCH ×3 (08:23→16:29)
[2018-07-21] MEDS: MUPIROCIN OINT 2% 22 GM TUBE SCH ×2 (08:25→21:03)
[2018-07-21] MEDS: DAKINS QUARTER STRENGTH (0.125%) 480 ML BOTTLE TOP SCH (08:25)
[2018-07-21 12:00] VITALS: BP 113/54
[2018-07-21] MEDS: ACETAMINOPHEN 325 MG TABLET PO PRN (12:21)
[2018-07-21] MEDS: SOD FERRIC GLUC 125 MG in IV NS 0.9% 100 ML IV SCH (14:49)
[2018-07-21 16:00] VITALS: BP 108/50
[2018-07-21] MEDS: MICAFUNGIN SODIUM 100 MG in IV NS 0.9% 100 ML IV SCH (18:00)
--- NOTE | 2018-07-21 18:46 | NUR ---
RN NOTES TRACH SUCTIONING DONE, TOLERATING TF WELL, NO SIGNIFICANT CHANGES NOTED ON THIS SHIFT, WILL ENDORSE TO PLASTIC WELDER NURSE FOR CONTINUITY OF CARE.
--- NOTE | 2018-07-21 19:30 | NUR ---
[facility]/RN NOTES: RECEIVED PT. IN BED W/ HOB ELEVATED. PT. ALERT TO NAME , TRACKS NON VERBAL. NO FACIAL GRIMACES OR MOANING NOTED. W/ COOL AEROSOL 35 % W/ 8LPM O2 SAT 100%. W/ TELE MONITOR W/ ST 105. W/ GTF OF NEPRO TOLERATING WELL W/ NO RESIDUAL NOTED. HAS BERNIE AV FISTULA W/ DRESSING C/D/I. W/ RIGHT IJ DOUBLE LUMEN W/ DRESSING C/D/I . NOTED BILATERAL AKA. HAS COLOSTOMY W/ BROWN STOOL. ON CONTACT ISOLATION. ASPIRATION PRECAUTION MAINTAINED. WILL CONTINUE TO MONITOR.
[2018-07-21 20:00] VITALS: BP 131/52
[2018-07-21] MEDS: INSULIN DETEMIR 100 UNIT/ML CARTRIDGE SQ SCH (21:01)
[2018-07-21] MEDS: ATORVASTATIN 40 MG TABLET GT SCH (21:03)
[2018-07-22] VITALS: BP 119/57
[2018-07-22 04:00] VITALS: BP 122/57
[2018-07-22] MEDS: INSULIN REGULAR, HUMAN 100 UNIT/ML 3 ML VIAL SQ PRN ×4 (06:01→23:03)
[2018-07-22] MEDS: BLOOD SUGAR DIAGNOSTIC 1 EACH STRIP IN SCH ×4 (06:01→23:00)
--- NOTE | 2018-07-22 07:18 | NUR ---
[facility]/RN NOTES: REPORT GIVEN TO NEXT SHIFT NURSE FOR RAMON.
--- NOTE | 2018-07-22 07:33 | NUR ---
[facility] RN NOTE: RECEIVED PATIENT IN BED, NONVERBAL AND UNABLE TO FOLLOW COMMANDS, BUT OPEN HIS EYES SPONTANEOUSLY. ON COOL AEROSOL O2 @8L/MIN SATURATING 100%. NO FACIAL GRIMACING NOTED. AWAITING FOR HEMODIALYSIS TODAY PER MD ORDER. ON DRAPERY ROD ASSEMBLER, ST HR= 102. (R) SUBCLAVIAN PICC LINE IN PLACED W/ (L) UPPER ARM AV FISTULA W/ DRY DRESSING. ON GT FEEDING OF NEPHRO @50ML/HR AND TOLERATING WELL. BED ALARMED AND LOCKED AT ALL TIMES. CALL LIGHT WITHIN REACH. ON CONTACT ISOLATION FOR MRSA NARES.
[2018-07-22 07:44] LABS: CALCIUM, SERUM 9.8 mg/dL (8.5-10.1); CARBON DIOXIDE 28 mmol/L (21-32); CHLORIDE 104 mmol/L (98-107); CREATININE 3.7 mg/dL (0.6-1.3); GLUCOSE 168 mg/dL (74-106); POTASSIUM 3.9 mmol/L (3.5-5.1); SODIUM SERUM 144 mmol/L (136-145); UREA NITROGEN, BLOOD 59 mg/dL (7-18)
[2018-07-22 08:00] VITALS: BP_SYST 116; BP_DIAS 40; BP_DIAS 46
[2018-07-22] MEDS: TOPIRAMATE 25 MG TABLET GT SCH (09:00)
[2018-07-22] MEDS: LACTOBACILLUS RHAMNOSUS GG 1 EACH CAP.SPRINK GT SCH ×2 (09:00→16:14)
[2018-07-22] MEDS: MIDODRINE HCL (5MG) 5 MG TABLET GT SCH ×3 (09:01→16:14)
[2018-07-22] MEDS: ALLOPURINOL 100 MG TABLET GT SCH (09:01)
[2018-07-22] MEDS: MUPIROCIN OINT 2% 22 GM TUBE SCH ×2 (09:01→21:33)
[2018-07-22] MEDS: DAKINS QUARTER STRENGTH (0.125%) 480 ML BOTTLE TOP SCH (09:02)
[2018-07-22] MEDS: MEROPENEM 500 MG in IV NS 0.9% 50 ML IV SCH (09:12)
[2018-07-22 12:00] VITALS: BP 97/47
[2018-07-22] MEDS ORDERED: DOSING PER PHARMACY-TOBRA INHALATION 1 EA XX PRN (12:30)
[2018-07-22] MEDS ORDERED: FEE PK DOSING 1 MIN EA MC ONE (12:41)
[2018-07-22] MEDS: ACETAMINOPHEN 325 MG TABLET PO PRN (14:08)
--- NOTE | 2018-07-22 14:08 | NUR ---
OVERAGE SHORTAGE AND DAMAGE CLERK NOTE: PATIENT'S RECTAL TEMPERATURE WAS CHECKED AND IT WAS 101.4F. COOLING MEASURES WAS PROVIDED W/ TYLENOL ORDERED INFORMED DANIEL CARLOS NP ABOUT IT.
[2018-07-22] MEDS: SOD FERRIC GLUC 125 MG in IV NS 0.9% 100 ML IV SCH ×2 (14:49→14:54)
[2018-07-22] MEDS ORDERED: TOBRAMYCIN 100 MG in IV D5W 100 ML IV ONE (15:00)
--- NOTE | 2018-07-22 15:51 | NUR ---
ELECTRICIAN SOUND NOTE: RECEIVED A MESSAGE FROM DANIEL CARLOS NP AND HE ORDERED TO GIVE MOTRIN 600MG GT X1. ORDER NOTED AND CARRIED OUT.
[2018-07-22 16:00] VITALS: BP 108/55
[2018-07-22] MEDS ORDERED: IBUPROFEN 200 MG TABLET GT ONE (16:00)
--- NOTE | 2018-07-22 18:00 | NUR ---
PHOTOGRAPHY COORDINATOR NOTE: RECHECKED THE PATIENT'S RECTAL TEMPERATURE AND IT WAS 99.1F AND DANIEL CARLOS NP MADE AWARE. RN MENTAL HEALTH WITH NO NEW ORDER. WILL CONTINUE TO MONITOR TEMPERATURE.
[2018-07-22] MEDS: MICAFUNGIN SODIUM 100 MG in IV NS 0.9% 100 ML IV SCH (19:04)
--- NOTE | 2018-07-22 19:38 | NUR ---
PRODUCT PICKER NOTE: PATIENT REMAINED ON STABLE CONDITION. WOUND TREATMENT WAS DONE. PATIENT HAD HEMODIALYSIS TODAY W/ 1100ML OUTPUT. REPORT GIVEN TO PM SHIFT NURSE FOR CONTINUITY OF CARE AND MADE HER AWARE TO MONITOR THE PATIENT'S TEMPERATURE.
[2018-07-22 20:00] VITALS: BP 136/46
[2018-07-22] MEDS: ATORVASTATIN 40 MG TABLET GT SCH (21:36)
[2018-07-22] MEDS: INSULIN DETEMIR 100 UNIT/ML CARTRIDGE SQ SCH (23:02)
[2018-07-23] VITALS: BP 140/40
[2018-07-23] MEDS: NEPRO 1,000 ML BOTTLE GT SCH (03:10)
[2018-07-23 04:00] VITALS: BP 131/36
[2018-07-23] MEDS: BLOOD SUGAR DIAGNOSTIC 1 EACH STRIP IN SCH ×3 (05:43→17:07)
[2018-07-23] MEDS: INSULIN REGULAR, HUMAN 100 UNIT/ML 3 ML VIAL SQ PRN ×2 (05:51→12:00)
[2018-07-23 06:39] LABS: BASOPHILS # (AUTO) 0.1 /CMM (0.0-0.2); BASOPHILS % (AUTO) 0.3 % (0.0-2.0); EOSINOPHILS % (AUTO) 3.2 % (0.0-6.0); HEMATOCRIT 26 % (39-51); HEMOGLOBIN 7.9 g/dL (13.5-17.5); LYMPHOCYTES # (AUTO) 4.1 /CMM (0.8-4.8); LYMPHOCYTES % (AUTO) 13.4 % (20.0-44.0); MEAN CORPUSCULAR HGB CONC 30 g/dl (31.0-36.0); MEAN CORPUSCULAR VOLUME 91 fL (80-96); MONOCYTES # (AUTO) 1.3 /CMM (0.1-1.30); MONOCYTES % (AUTO) 4.4 % (2.0-12.0); NEUTROPHILS # (AUTO) 23.9 /CMM (1.8-8.9); NEUTROPHILS % (AUTO) 78.7 % (43.0-81.0); PLATELET COUNT (AUTO) 484 /CMM (150-450); RDW COEFFICIENT OF VARIATION 23.5 (11.5-15.0); RED BLOOD CELL COUNT(AUTO) 2.88 MIL/uL (4.5-6.0)
[2018-07-23 06:48] LABS: WHITE BLOOD COUNT (AUTO) 30.4 K/uL (4.3-11.0)
[2018-07-23 06:50] LABS: CARBON DIOXIDE 29 mmol/L (21-32); CHLORIDE 104 mmol/L (98-107); CREATININE 2.6 mg/dL (0.6-1.3); GLUCOSE 192 mg/dL (74-106); MAGNESIUM 2.2 mg/dL (1.8-2.4); PHOSPHORUS 2.9 mg/dL (2.5-4.9); SODIUM SERUM 146 mmol/L (136-145); UREA NITROGEN, BLOOD 36 mg/dL (7-18)
--- NOTE | 2018-07-23 07:10 | NUR ---
RN NOTES RECEIVED PATIENT ON BED, TRACH DEPENDENT, ON COOL AEROSOL 35%, NO SOB NOTED, OPEN HIS EYES SPONTANEOUSLY. TRACH SUCTIONING DONE , ON TELE SR, HR IN 90'S , RIGHT SUBCLAVIAN PICC LINE SITE CLEAN, DRY AND INTACT, NEPHRO @50ML/HR RUNNING VIA G -TUBE, TOLERATING WELL, NO RESIDUAL NOTED, SR UP x3, CALL LIGHT WITHIN EASY REACH. BED LOCKED AND IN LOWEST POSITION,
[2018-07-23 07:15] LABS: EOSINOPHILS % (MANUAL) 4 % (0-4); LYMPHOCYTES % (MANUAL) 14 % (16-48); MONOCYTES % (MANUAL) 4 % (0-11.0); NEUTROPHILS % (MANUAL) 78 (42-76)
--- NOTE | 2018-07-23 07:25 | NUR ---
SENIOR STOCK PLAN ADMINISTRATOR NOTE PT REMAINED STABLE DURING SHIFT. NO ACUTE DISTRESS NOTED. HOB ELEVATED. ISOLATION PRECAUTIONS OBSERVED. SUCTIONED NEEDED. SATURATING WELL. KEPT CLEAN AND DRY. REPOSITIONED Q2H. RECEIVED CRITICAL VALUE WBC 30.4 AND INFORMED MORNING SHIFT RN. ENDORSED TO NEXT SHIFT FOR CONTINUITY OF CARE.
[2018-07-23 08:00] VITALS: BP 137/51
[2018-07-23] MEDS: MIDODRINE HCL (5MG) 5 MG TABLET GT SCH ×3 (09:03→16:58)
[2018-07-23] MEDS: LACTOBACILLUS RHAMNOSUS GG 1 EACH CAP.SPRINK GT SCH ×2 (09:03→16:58)
[2018-07-23] MEDS: TOPIRAMATE 25 MG TABLET GT SCH (09:03)
[2018-07-23] MEDS: DAKINS QUARTER STRENGTH (0.125%) 480 ML BOTTLE TOP SCH (09:04)
[2018-07-23] MEDS: MUPIROCIN OINT 2% 22 GM TUBE SCH ×2 (09:04→21:01)
[2018-07-23] MEDS: ALLOPURINOL 100 MG TABLET GT SCH (09:05)
[2018-07-23] MEDS ORDERED: FEE PK DOSING 1 MIN EA MC ONE (09:25)
[2018-07-23] MEDS ORDERED: TOBRAMYCIN 120 MG in IV D5W 50 ML IV ONE (11:00)
[2018-07-23 12:00] VITALS: BP 146/59
[2018-07-23 16:00] VITALS: BP 130/46
--- NOTE | 2018-07-23 18:00 | NUR ---
RN NOTES TRACH CARE DONE, TOLERATING TF WELL , NO RESIDUAL NOTED, NO SIGNIFICANT CHANGES NOTED ON THIS SHIFT , WILL ENDOSE TO FLAG SIGNALER NURSE FOR CONTINUITY OF CARE
[2018-07-23] MEDS: MICAFUNGIN SODIUM 100 MG in IV NS 0.9% 100 ML IV SCH (18:02)
[2018-07-23 20:00] VITALS: BP 136/52
--- NOTE | 2018-07-23 20:00 | NUR ---
GAMBRELER HELPER NOTES RECEIVED PT IN BED, A/O X1 TO NAME, NONVERBAL. TELE READS ST AT 103 BPM. ON O2 VIA T-PIECE AT 35%, TOLERATING WELL WITH MODERATE SECRETIONS. DIAPHORETIC BUT AFEBRILE. ANURIC WITH HD. COLOSTOMY IN PLACE DRAINING WELL TO LIQUID BROWN STOOL, PINK MOIST STOMA. GT IN PLACE RUNNING NEPRO AT 50 ML/HR, NO GASTRIC RESIDUAL. LEFT ARM AV FISTULA PRESENT, RIGHT SUBCLAVIAN DOUBLE LUMEN CATHETER RUNNING NS AT TKO. HOB ELEVATED, SIDE RAILS X2, CALL LIGHT WITHIN REACH. NO S/S OF ACUTE DISTRESS NOTED.
[2018-07-23] MEDS: MEROPENEM 500 MG in IV NS 0.9% 50 ML IV SCH (20:53)
[2018-07-23] MEDS: ACETAMINOPHEN 325 MG TABLET PO PRN (21:01)
[2018-07-23] MEDS: ATORVASTATIN 40 MG TABLET GT SCH (21:01)
[2018-07-23] MEDS: INSULIN DETEMIR 100 UNIT/ML CARTRIDGE SQ SCH (21:17)
[2018-07-24] VITALS: BP 137/59
[2018-07-24] MEDS: NEPRO 1,000 ML BOTTLE GT SCH (00:20)
[2018-07-24] MEDS: BLOOD SUGAR DIAGNOSTIC 1 EACH STRIP IN SCH ×5 (00:21→23:48)
[2018-07-24] MEDS: INSULIN REGULAR, HUMAN 100 UNIT/ML 3 ML VIAL SQ PRN ×3 (00:22→23:54)
[2018-07-24 04:00] VITALS: BP 118/64
[2018-07-24] MEDS: MEROPENEM 500 MG in IV NS 0.9% 50 ML IV SCH ×2 (05:12→17:17)
--- NOTE | 2018-07-24 07:30 | NUR ---
RESEARCH AFFILIATE INITIAL NOTES RECEIVED PT IN BED, A/O X1 TO NAME, NONVERBAL. TELE READS ST AT 110 ST BPM. ON O2 VIA T-PIECE AT 35%, TOLERATING WELL WITH MODERATE SECRETIONS. ANURIC WITH HD. COLOSTOMY IN PLACE DRAINING WELL TO LIQUID BROWN STOOL, PINK MOIST STOMA. GT IN PLACE RUNNING NEPRO AT 50 ML/HR, NO GASTRIC RESIDUAL. LEFT ARM AV FISTULA PRESENT, RIGHT SUBCLAVIAN DOUBLE LUMEN CATHETER RUNNING NS AT TKO. HOB ELEVATED, SIDE RAILS X2, CALL LIGHT WITHIN REACH. NO S/S OF ACUTE DISTRESS NOTED. WILL CONTINUE TO MONITOR.
[2018-07-24 07:38] LABS: BASOPHILS # (AUTO) 0.1 /CMM (0.0-0.2); BASOPHILS % (AUTO) 0.2 % (0.0-2.0); EOSINOPHILS % (AUTO) 3.3 % (0.0-6.0); HEMATOCRIT 26 % (39-51); HEMOGLOBIN 7.8 g/dL (13.5-17.5); LYMPHOCYTES # (AUTO) 1.9 /CMM (0.8-4.8); MEAN CORPUSCULAR HGB CONC 31 g/dl (31.0-36.0); MEAN CORPUSCULAR VOLUME 91 fL (80-96); MONOCYTES # (AUTO) 1.4 /CMM (0.1-1.30); NEUTROPHILS # (AUTO) 19.6 /CMM (1.8-8.9); NEUTROPHILS % (AUTO) 82.5 % (43.0-81.0); PLATELET COUNT (AUTO) 524 /CMM (150-450); RDW COEFFICIENT OF VARIATION 22.7 (11.5-15.0); RED BLOOD CELL COUNT(AUTO) 2.81 MIL/uL (4.5-6.0); WHITE BLOOD COUNT (AUTO) 23.7 K/uL (4.3-11.0)
[2018-07-24 07:52] LABS: CALCIUM, SERUM 10.1 mg/dL (8.5-10.1); CARBON DIOXIDE 33 mmol/L (21-32); CHLORIDE 107 mmol/L (98-107); CREATININE 3.5 mg/dL (0.6-1.3); GLUCOSE 86 mg/dL (74-106); MAGNESIUM 2.3 mg/dL (1.8-2.4); PHOSPHORUS 4.2 mg/dL (2.5-4.9); SODIUM SERUM 148 mmol/L (136-145); UREA NITROGEN, BLOOD 57 mg/dL (7-18)
[2018-07-24 08:00] VITALS: BP 143/59
[2018-07-24 08:04] LABS: BAND % (MANUAL) 2 % (0.0-5.0); EOSINOPHILS % (MANUAL) 3 % (0-4); LYMPHOCYTES % (MANUAL) 10 % (16-48); MONOCYTES % (MANUAL) 4 % (0-11.0); NEUTROPHILS % (MANUAL) 81 (42-76)
[2018-07-24] MEDS: MIDODRINE HCL (5MG) 5 MG TABLET GT SCH ×3 (09:00→17:17)
[2018-07-24] MEDS: LACTOBACILLUS RHAMNOSUS GG 1 EACH CAP.SPRINK GT SCH ×2 (09:09→17:17)
[2018-07-24] MEDS: ALLOPURINOL 100 MG TABLET GT SCH (09:09)
[2018-07-24] MEDS: TOPIRAMATE 25 MG TABLET GT SCH (09:09)
[2018-07-24] MEDS: DAKINS QUARTER STRENGTH (0.125%) 480 ML BOTTLE TOP SCH (09:11)
[2018-07-24] MEDS: MUPIROCIN OINT 2% 22 GM TUBE SCH ×2 (09:11→21:22)
[2018-07-24 12:00] VITALS: BP 131/54
[2018-07-24] MEDS ORDERED: ALBUMIN 25% 25 GM in PREMIX 1 EA IV ONE (14:00)
[2018-07-24] MEDS ORDERED: TOBRAMYCIN 80 MG in IV D5W 50 ML IV PRN (15:00)
[2018-07-24] MEDS: TOBRAMYCIN 80 MG in IV D5W 50 ML IV PRN (15:56)
[2018-07-24 16:00] VITALS: BP 113/52
[2018-07-24] MEDS ORDERED: FEE PK DOSING 1 MIN EA MC ONE (18:03)
--- NOTE | 2018-07-24 18:40 | NUR ---
PUBLIC ADDRESS SYSTEM OPERATOR NOTES PATIENT RESTING IN BED, NO SIGNS OF DISTRESS, AFEBRILE, WOUND CARE DONE, TURNED AND REPOSITIONED Q2H, WILL ENDORSE TO PIECE MEAT TRIMMER TO GIVE VANCOMYCIN POST HD IV ANTIBIOTIC PER PHARMACY.
--- NOTE | 2018-07-24 19:30 | NUR ---
RN/TELE NOTES: RECEIVED PT. IN BED W/ HOB ELEVATED. PT. ALERT TO NAME , TRACKS NON VERBAL. NO FACIAL GRIMACES OR MOANING NOTED. W/ COOL AEROSOL 50 % W/ 10LPM O2 SAT 100%. W/ TELE MONITOR W/ ST 117. W/ GTF OF NEPRO TOLERATING WELL W/ NO RESIDUAL NOTED. HAS BERNIE AV FISTULA W/ DRESSING C/D/I. W/ RIGHT IJ DOUBLE LUMEN W/ DRESSING C/D/I . NOTED BILATERAL AKA. HAS COLOSTOMY W/ BROWN STOOL. ON CONTACT ISOLATION. ASPIRATION PRECAUTION MAINTAINED. WILL CONTINUE TO MONITOR. Addendum: 07/25/18 at 0223 by FAVIAN NORMAN RN RN/TELE NOTES: - RECEIVED PT. ON COOL AEROSOL 35 % W/ 8LPM. RT INCREASED FIO2 TO 50 % AT 2330 DUE TO DE-SATING TO 89%.
[2018-07-24 20:00] VITALS: BP 105/36
[2018-07-24] MEDS: MICAFUNGIN SODIUM 100 MG in IV NS 0.9% 100 ML IV SCH (20:13)
[2018-07-24] MEDS: ATORVASTATIN 40 MG TABLET GT SCH (21:28)
[2018-07-24] MEDS: INSULIN DETEMIR 100 UNIT/ML CARTRIDGE SQ SCH (21:29)
[2018-07-24] MEDS: VANCOMYCIN 500 MG in IV D5W 100 ML IV PRN (21:41)
--- NOTE | 2018-07-24 23:30 | NUR ---
INCREASED FIO2 TO 50% DUE TO DESATTING TO SPO2 89%. ROBBY BALLESTEROS NOTIFIED
[2018-07-24] MEDS: HYDROCODONE/APAP 5/325MG 1 EACH TABLET PO PRN (23:38)
[2018-07-25] VITALS: BP 87/46
[2018-07-25] MEDS: NEPRO 1,000 ML BOTTLE GT SCH ×2 (02:41→20:37)
[2018-07-25 04:00] VITALS: BP 110/48
[2018-07-25] MEDS: MEROPENEM 500 MG in IV NS 0.9% 50 ML IV SCH ×2 (06:25→18:10)
[2018-07-25] MEDS: BLOOD SUGAR DIAGNOSTIC 1 EACH STRIP IN SCH ×3 (06:25→17:48)
[2018-07-25] MEDS: INSULIN REGULAR, HUMAN 100 UNIT/ML 3 ML VIAL SQ PRN ×3 (06:27→17:49)
[2018-07-25 07:09] LABS: BASOPHILS % (AUTO) 0.1 % (0.0-2.0); EOSINOPHILS % (AUTO) 1.4 % (0.0-6.0); HEMATOCRIT 24 % (39-51); HEMOGLOBIN 7.3 g/dL (13.5-17.5); LYMPHOCYTES # (AUTO) 2.1 /CMM (0.8-4.8); MEAN CORPUSCULAR HGB CONC 31 g/dl (31.0-36.0); MEAN CORPUSCULAR VOLUME 90 fL (80-96); MONOCYTES # (AUTO) 1.8 /CMM (0.1-1.30); MONOCYTES % (AUTO) 6.7 % (2.0-12.0); NEUTROPHILS # (AUTO) 22.4 /CMM (1.8-8.9); NEUTROPHILS % (AUTO) 83.8 % (43.0-81.0); PLATELET COUNT (AUTO) 496 /CMM (150-450); RDW COEFFICIENT OF VARIATION 21.8 (11.5-15.0); RED BLOOD CELL COUNT(AUTO) 2.63 MIL/uL (4.5-6.0); WHITE BLOOD COUNT (AUTO) 26.7 K/uL (4.3-11.0)
[2018-07-25 07:26] LABS: CALCIUM, SERUM 9.5 mg/dL (8.5-10.1); CARBON DIOXIDE 32 mmol/L (21-32); CHLORIDE 106 mmol/L (98-107); CREATININE 3.3 mg/dL (0.6-1.3); GLUCOSE 209 mg/dL (74-106); MAGNESIUM 2.1 mg/dL (1.8-2.4); PHOSPHORUS 2.7 mg/dL (2.5-4.9); POTASSIUM 3.3 mmol/L (3.5-5.1); SODIUM SERUM 146 mmol/L (136-145); UREA NITROGEN, BLOOD 50 mg/dL (7-18)
--- NOTE | 2018-07-25 07:49 | NUR ---
TELE/RN NOTES: REPORT GIVEN TO NEXT SHIFT NURSE FOR RAMON.
[2018-07-25 08:00] VITALS: BP 104/49
[2018-07-25] MEDS: LACTOBACILLUS RHAMNOSUS GG 1 EACH CAP.SPRINK GT SCH ×2 (08:35→17:48)
[2018-07-25] MEDS: HYDROCODONE/APAP 5/325MG 1 EACH TABLET PO PRN (08:36)
[2018-07-25] MEDS: TOPIRAMATE 25 MG TABLET GT SCH (08:36)
[2018-07-25] MEDS: ALLOPURINOL 100 MG TABLET GT SCH (08:36)
[2018-07-25] MEDS: DAKINS QUARTER STRENGTH (0.125%) 480 ML BOTTLE TOP SCH (08:38)
[2018-07-25] MEDS: MUPIROCIN OINT 2% 22 GM TUBE SCH ×2 (08:38→20:38)
[2018-07-25] MEDS: MIDODRINE HCL (5MG) 5 MG TABLET GT SCH ×3 (08:52→17:00)
[2018-07-25 10:40] LABS: EOSINOPHILS % (MANUAL) 2 % (0-4); LYMPHOCYTES % (MANUAL) 4 % (16-48); MONOCYTES % (MANUAL) 12 % (0-11.0); NEUTROPHILS % (MANUAL) 82 (42-76)
[2018-07-25 12:00] VITALS: BP 133/57
--- NOTE | 2018-07-25 13:30 | NUR ---
RN NOTE PATIENT POTASSIUM IS LOW. MADE AWARE.
[2018-07-25] MEDS: ACETAMINOPHEN 325 MG TABLET PO PRN (13:35)
[2018-07-25 16:00] VITALS: BP 125/59
--- NOTE | 2018-07-25 19:30 | NUR ---
RECEIVED PATIENT IN BED, PATIENT IS BED RIDDEN, NON-VERBAL, TRACH WITH T-PIECE ON 10L COOL AEROSOL SAT 100%. PATIENT HAS THICK COPIOUS SECRETIONS. PATIENT SUCTIONED, TURNED AND REPOSITIONED.CONTINUE TO MONITOR
[2018-07-25 20:00] VITALS: BP_SYST 82; BP_SYST 92; BP_DIAS 40
[2018-07-25] MEDS: MICAFUNGIN SODIUM 100 MG in IV NS 0.9% 100 ML IV SCH (20:37)
[2018-07-25] MEDS: ATORVASTATIN 40 MG TABLET GT SCH (21:23)
[2018-07-25] MEDS: INSULIN DETEMIR 100 UNIT/ML CARTRIDGE SQ SCH (21:26)
--- NOTE | 2018-07-25 22:00 | NUR ---
PATIENT HAS A RIGHT MID LINE, RIGHT CW PICC PULLED OUT , TIP OF THE CATHETER SENT TO THE LAB
[2018-07-26] VITALS (12 sets, daily range): BP systolic 101–136; BP diastolic 48–72
[2018-07-26] MEDS: INSULIN REGULAR, HUMAN 100 UNIT/ML 3 ML VIAL SQ PRN ×3 (00:13→18:07)
[2018-07-26] MEDS: BLOOD SUGAR DIAGNOSTIC 1 EACH STRIP IN SCH ×4 (00:13→18:07)
[2018-07-26] MEDS: MEROPENEM 500 MG in IV NS 0.9% 50 ML IV SCH ×2 (05:05→17:23)
--- NOTE | 2018-07-26 07:20 | NUR ---
BAND BOOKER INITIAL NOTES RECEIVED PATIENT IN BED, WITH OPEN EYES. TRACH TO COOL AEROSOL. ON FIO2 40%. O2 SAT 95%. BRENNON MIDLINE IV FLUIDS TKO/PATENT. L AV FISTULA BRUIT/THRILL NOTED. GTUBE FLUSHED/PATENT. ON TELE ST 105. BED IN LOCKED/LOWEST POSITION. SIDE RAILS UPX3. NO FEVER. WILL CONT TO MONITOR.
[2018-07-26] MEDS ORDERED: EPOETIN ALFA (10,000 UNIT) 10,000 UNIT/ML VIAL IV ONE (08:30)
[2018-07-26 08:43] LABS: BASOPHILS % (AUTO) 0.1 % (0.0-2.0); EOSINOPHILS % (AUTO) 2.5 % (0.0-6.0); HEMATOCRIT 23 % (39-51); LYMPHOCYTES # (AUTO) 1.8 /CMM (0.8-4.8); LYMPHOCYTES % (AUTO) 5.9 % (20.0-44.0); MEAN CORPUSCULAR HGB CONC 29 g/dl (31.0-36.0); MEAN CORPUSCULAR VOLUME 90 fL (80-96); MONOCYTES # (AUTO) 1.5 /CMM (0.1-1.30); MONOCYTES % (AUTO) 5.2 % (2.0-12.0); NEUTROPHILS # (AUTO) 25.6 /CMM (1.8-8.9); NEUTROPHILS % (AUTO) 86.3 % (43.0-81.0); PLATELET COUNT (AUTO) 469 /CMM (150-450); RDW COEFFICIENT OF VARIATION 21.9 (11.5-15.0); WHITE BLOOD COUNT (AUTO) 29.6 K/uL (4.3-11.0)
[2018-07-26 08:46] LABS: CALCIUM, SERUM 8.8 mg/dL (8.5-10.1); CARBON DIOXIDE 29 mmol/L (21-32); CHLORIDE 109 mmol/L (98-107); CREATININE 3.4 mg/dL (0.6-1.3); GLUCOSE 97 mg/dL (74-106); POTASSIUM 3.2 mmol/L (3.5-5.1); SODIUM SERUM 150 mmol/L (136-145); UREA NITROGEN, BLOOD 61 mg/dL (7-18)
[2018-07-26 08:51] LABS: HEMOGLOBIN 6.6 g/dL (13.5-17.5)
[2018-07-26] MEDS ORDERED: MULTIVITAMIN LIQ 5 ML UDC GT SCH (09:00)
--- NOTE | 2018-07-26 09:00 | NUR ---
CAMP DISHWASHER NOTES DR CHA ROUNDING WITH PATIENT.
[2018-07-26] MEDS: TOPIRAMATE 25 MG TABLET GT SCH (09:13)
[2018-07-26] MEDS: LACTOBACILLUS RHAMNOSUS GG 1 EACH CAP.SPRINK GT SCH ×2 (09:13→17:22)
[2018-07-26] MEDS: ALLOPURINOL 100 MG TABLET GT SCH (09:14)
[2018-07-26] MEDS: ASCORBIC ACID 500 MG TABLET PO SCH (09:14)
[2018-07-26 09:15] LABS: BAND % (MANUAL) 3 % (0.0-5.0); EOSINOPHILS % (MANUAL) 4 % (0-4); LYMPHOCYTES % (MANUAL) 6 % (16-48); MONOCYTES % (MANUAL) 7 % (0-11.0); NEUTROPHILS % (MANUAL) 80 (42-76)
[2018-07-26] MEDS: MIDODRINE HCL (5MG) 5 MG TABLET GT SCH ×3 (09:17→17:22)
[2018-07-26] MEDS: DAKINS QUARTER STRENGTH (0.125%) 480 ML BOTTLE TOP SCH (09:29)
--- NOTE | 2018-07-26 09:37 | NUR ---
GAS WELL DRILLING MANAGER NOTE CALLED TO DR FAROOQ NOTICED THAT HG 6.6 WITH ORDER BLOOD TRANSFUSION 1 UNIT PRBC. CALLED SON TELEPHONE CONSENT OBTAINED
[2018-07-26] MEDS: MULTIVITAMINS,THERAGRAN 1 UDTAB TABLET GT SCH (10:04)
[2018-07-26] MEDS: MUPIROCIN OINT 2% 22 GM TUBE SCH ×2 (10:08→20:31)
--- NOTE | 2018-07-26 11:24 | NUR ---
PRESCHOOL TEACHER AIDE NOTES HD BLOOD TRANSFUSION STARTED BY HD NURSE.
--- NOTE | 2018-07-26 12:39 | NUR ---
ASSEMBLER 1ST SHIFT NOTE ON HD AT THIS TIME
--- NOTE | 2018-07-26 12:59 | NUR ---
LABEL SEWER NOTE HD COMPETED REMOVED 1.5 L OF FLUIDS OUT, BP 117/56 HR 100 T 97.9
[2018-07-26] MEDS: TOBRAMYCIN 80 MG in IV D5W 50 ML IV PRN (14:33)
--- NOTE | 2018-07-26 14:48 | NUR ---
LEAD REFINER NOTES PER PHARMACY, ADMINISTER VANCOMYCIN.
[2018-07-26] MEDS: VANCOMYCIN 500 MG in IV D5W 100 ML IV PRN (15:47)
[2018-07-26] MEDS: ACETAMINOPHEN 325 MG TABLET PO PRN (17:25)
--- NOTE | 2018-07-26 17:39 | NUR ---
SOFTWARE ENGINEER INTERN NOTE T 100.3 TYLENOL GIVEN A GTUBE, WILL F\U
--- NOTE | 2018-07-26 18:34 | NUR ---
PRACTICE OR STUDENT TEACHER NOTE SEEN BY GIOVANNA BUSTAMANTE NO ID AWARE THAT PATIENT HAS FEVER 100.3 AND SKIN IS PERSPIRATION, STATED THAT CHANGE ATB, WILL F\U
--- NOTE | 2018-07-26 19:06 | NUR ---
HOOKING MACHINE OPERATOR NOTE T 99.7 WILL CONT TO MONITOR CLOSELY, KEEP CLEAN DRY
--- NOTE | 2018-07-26 19:47 | NUR ---
RN TEL INITIAL NOTES RECEIVED PATIENT IN BED, WITH OPEN EYES. TRACH TO COOL AEROSOL. ON FIO2 40%. O2 SAT 96-98%. BRENNON MIDLINE IV FLUIDS TKO/PATENT. L AV FISTULA BRUIT/THRILL NOTED. GTUBE, NEPHRO @50ML/HR, FLUSHED/PATENT. ON TELE ST 100'S. BED IN LOCKED/LOWEST POSITION. SIDE RAILS UPX3. NO FEVER. WILL CONT TO MONITOR.
[2018-07-26] MEDS: COLISTIMETHATE SODIUM 100 MG in IV NS 0.9% 50 ML IV SCH (20:31)
[2018-07-26] MEDS: ATORVASTATIN 40 MG TABLET GT SCH (21:22)
[2018-07-26] MEDS: INSULIN DETEMIR 100 UNIT/ML CARTRIDGE SQ SCH (21:26)
[2018-07-27] VITALS (7 sets, daily range): BP systolic 102–128; BP diastolic 45–61
[2018-07-27] MEDS: NEPRO 1,000 ML BOTTLE GT SCH (00:30)
[2018-07-27] MEDS: BLOOD SUGAR DIAGNOSTIC 1 EACH STRIP IN SCH ×5 (01:30→23:20)
[2018-07-27] MEDS: INSULIN REGULAR, HUMAN 100 UNIT/ML 3 ML VIAL SQ PRN ×2 (01:31→05:26)
[2018-07-27 06:24] LABS: BASOPHILS # (AUTO) 0.1 /CMM (0.0-0.2); BASOPHILS % (AUTO) 0.3 % (0.0-2.0); EOSINOPHILS % (AUTO) 3.2 % (0.0-6.0); HEMATOCRIT 27 % (39-51); HEMOGLOBIN 8.6 g/dL (13.5-17.5); LYMPHOCYTES # (AUTO) 2.2 /CMM (0.8-4.8); LYMPHOCYTES % (AUTO) 7.7 % (20.0-44.0); MEAN CORPUSCULAR HGB CONC 32 g/dl (31.0-36.0); MEAN CORPUSCULAR VOLUME 90 fL (80-96); MONOCYTES # (AUTO) 1.8 /CMM (0.1-1.30); MONOCYTES % (AUTO) 6.2 % (2.0-12.0); NEUTROPHILS # (AUTO) 23.3 /CMM (1.8-8.9); NEUTROPHILS % (AUTO) 82.6 % (43.0-81.0); PLATELET COUNT (AUTO) 472 /CMM (150-450); RDW COEFFICIENT OF VARIATION 19.7 (11.5-15.0); RED BLOOD CELL COUNT(AUTO) 3.01 MIL/uL (4.5-6.0); WHITE BLOOD COUNT (AUTO) 28.2 K/uL (4.3-11.0)
--- NOTE | 2018-07-27 06:36 | NUR ---
RN TEL CLOSING NOTES ENDORSED PATIENT IN BED, WITH OPEN EYES. TRACH TO COOL AEROSOL. ON FIO2 40%. O2 SAT 96-98%. BRENNON MIDLINE IV FLUIDS TKO/PATENT. L AV FISTULA BRUIT/THRILL NOTED. GTUBE, NEPHRO @50ML/HR, FLUSHED/PATENT. ON TELE ST 100'S. BED IN LOCKED/LOWEST POSITION. SIDE RAILS UPX3. NO FEVER. WILL CONT TO MONITOR.
[2018-07-27 06:39] LABS: CALCIUM, SERUM 9.7 mg/dL (8.5-10.1); CARBON DIOXIDE 31 mmol/L (21-32); CHLORIDE 102 mmol/L (98-107); CREATININE 3.1 mg/dL (0.6-1.3); GLUCOSE 156 mg/dL (74-106); POTASSIUM 3.7 mmol/L (3.5-5.1); SODIUM SERUM 143 mmol/L (136-145); UREA NITROGEN, BLOOD 57 mg/dL (7-18)
--- NOTE | 2018-07-27 07:52 | NUR ---
DUST BRUSH ASSEMBLER OPENING NOTES RECEIVED PT FROM [facility] NURSE IN STABLE CONDITION. PT IS NONVERBAL, OPENS EYES SPONTANEOUSLY, AND IS RESPONSIVE TO TACTILE STIMULI. HE IS CURRENTLY SINUS TACH ON THE TELE MONITOR WITH A HR OF 105. T-PIECE NOTED TO BE INTACT. PT SATING WELL AND TOLERATING ORDERED SETTINGS. GTUBE NOTED TO BE PATENT AND INTACT. PLACEMENT VERIFIED VIA AUSCULTATION. PT TOLERATING GTUBE FEEDINGS WELL. 15CC OF RESIDUALS ASPIRATED AT THIS TIME. RIGHT UPPER ARM MIDLINE NOTED TO BE PATENT AND INTACT. LEFT LOWER ARM AV FISTULA NOTED. BRUIT AND THRILL PRESENT. LEFT LOWER QUADRANT COLOSTOMY NOT TO BE INTACT. NO CONTENTS NOTED AT THIS TIME. BED IN LOW LOCKED POSITION, SIDE RAILS UP X3, CALL LIGHT WITHIN REACH, BED ALARM ON, ISOLATION PRECAUTIONS MAINTAINED. WILL CONTINUE TO MONITOR
[2018-07-27] MEDS: TOPIRAMATE 25 MG TABLET GT SCH (09:06)
[2018-07-27] MEDS: MULTIVITAMINS,THERAGRAN 1 UDTAB TABLET GT SCH (09:06)
[2018-07-27] MEDS: ALLOPURINOL 100 MG TABLET GT SCH (09:06)
[2018-07-27] MEDS: DAKINS QUARTER STRENGTH (0.125%) 480 ML BOTTLE TOP SCH (09:06)
[2018-07-27] MEDS: ACETAMINOPHEN 325 MG TABLET PO PRN (09:06)
[2018-07-27] MEDS: MUPIROCIN OINT 2% 22 GM TUBE SCH ×2 (09:06→20:34)
[2018-07-27] MEDS: LACTOBACILLUS RHAMNOSUS GG 1 EACH CAP.SPRINK GT SCH ×2 (09:06→16:59)
[2018-07-27] MEDS: ASCORBIC ACID 500 MG TABLET PO SCH (09:06)
[2018-07-27] MEDS: MIDODRINE HCL (5MG) 5 MG TABLET GT SCH ×3 (09:07→17:00)
[2018-07-27 10:41] LABS: BAND % (MANUAL) 1 % (0.0-5.0); EOSINOPHILS % (MANUAL) 2 % (0-4); LYMPHOCYTES % (MANUAL) 14 % (16-48); MONOCYTES % (MANUAL) 9 % (0-11.0); NEUTROPHILS % (MANUAL) 74 (42-76)
--- NOTE | 2018-07-27 18:21 | NUR ---
TROUSSEAU CONSULTANT CLOSING NOTES PT REMAINS STABLE. ALL NEEDS WERE MET DURING SHIFT AND ORDERS CARRIED OUT ACCORDINGLY. ALL DUE MEDS GIVEN. VITALS REMAINED STABLE THROUGHOUT SHIFT. MIDLINE REMAINS PATENT AND INTACT. PT CONTINUE TO TOLERATE TUBE FEEDING WELL. NO RESIDUALS ASPIRATED AT THIS TIME. PEG REMAIN PATENT AND INTACT. WOUND AND SKIN CARE RENDERED ORDERED. DRESSINGS REMAIN CLEAN, DRY, AND INTACT. PT REPOSITIONED AND TURNED PER HOSPITAL PROTOCOL. SAFETY AND ISOLATION PRECAUTIONS REMAIN IN PLACE. WILL ENDORSE TO NIGHTSHIFT NURSE FOR RAMON
[2018-07-27] MEDS: COLISTIMETHATE SODIUM 100 MG in IV NS 0.9% 50 ML IV SCH (20:34)
[2018-07-27] MEDS: INSULIN DETEMIR 100 UNIT/ML CARTRIDGE SQ SCH (21:32)
[2018-07-27] MEDS: ATORVASTATIN 40 MG TABLET GT SCH (21:32)
--- NOTE | 2018-07-27 21:32 | NUR ---
LEVIRMIR 20U NOT IN CASET
[2018-07-28] VITALS: BP 121/40
[2018-07-28] MEDS: NEPRO 1,000 ML BOTTLE GT SCH (03:30)
[2018-07-28 04:00] VITALS: BP_SYST 119; BP_SYST 121; BP_DIAS 40; BP_DIAS 48
[2018-07-28] MEDS: BLOOD SUGAR DIAGNOSTIC 1 EACH STRIP IN SCH ×4 (05:12→23:41)
[2018-07-28] MEDS: INSULIN REGULAR, HUMAN 100 UNIT/ML 3 ML VIAL SQ PRN ×3 (05:43→23:40)
--- NOTE | 2018-07-28 06:30 | NUR ---
RN TEL CLOSING NOTES ENDORSED PATIENT IN BED, WITH OPEN EYES. TRACH TO COOL AEROSOL. ON FIO2 40%. O2 SAT 96-98%. BRENNON MIDLINE IV FLUIDS TKO/PATENT. L AV FISTULA BRUIT/THRILL NOTED. GTUBE, NEPHRO @50ML/HR, FLUSHED/PATENT, 5CC RESIDUAL. ON TELE ST 90'S. BED IN LOCKED/LOWEST POSITION. SIDE RAILS UPX3. NO FEVER. WILL CONT TO MONITOR.
[2018-07-28 06:43] LABS: CARBON DIOXIDE 29 mmol/L (21-32); CHLORIDE 103 mmol/L (98-107); CREATININE 3.9 mg/dL (0.6-1.3); GLUCOSE 169 mg/dL (74-106); POTASSIUM 3.7 mmol/L (3.5-5.1); SODIUM SERUM 143 mmol/L (136-145); UREA NITROGEN, BLOOD 72 mg/dL (7-18)
--- NOTE | 2018-07-28 07:10 | NUR ---
LUMP ROOM SUPERVISOR OPENING NOTES RECEIVED REPORT FROM PN NURSE,PATIENT IN BED ,RESPONDS TO TOUCH AND LIGHT PAIN.. TRACH ,ON COOL AEROSOL. ON FIO2 40%. NO SOB NO DISTRESS NOTED AT THIS TIME. BRENNON MIDLINE IV FLUIDS TKO/PATENT. L AV FISTULA BRUIT/THRILL NOTED. GTUBE, NEPHRO @50ML/HR,. ON TELE ST 98. BED IN LOCKED/LOWEST POSITION. SIDE RAILS UPX3. CALL LIGHT IN REACH. WILL CONT TO MONITOR.
[2018-07-28 08:00] VITALS: BP 92/50
[2018-07-28 08:04] LABS: BASOPHILS # (AUTO) 0.1 /CMM (0.0-0.2); BASOPHILS % (AUTO) 0.3 % (0.0-2.0); EOSINOPHILS % (AUTO) 4.7 % (0.0-6.0); HEMATOCRIT 27 % (39-51); HEMOGLOBIN 8.2 g/dL (13.5-17.5); LYMPHOCYTES # (AUTO) 2.8 /CMM (0.8-4.8); LYMPHOCYTES % (AUTO) 11.6 % (20.0-44.0); MEAN CORPUSCULAR HGB CONC 31 g/dl (31.0-36.0); MEAN CORPUSCULAR VOLUME 90 fL (80-96); MONOCYTES # (AUTO) 1.6 /CMM (0.1-1.30); MONOCYTES % (AUTO) 6.7 % (2.0-12.0); NEUTROPHILS # (AUTO) 18.7 /CMM (1.8-8.9); NEUTROPHILS % (AUTO) 76.7 % (43.0-81.0); PLATELET COUNT (AUTO) 485 /CMM (150-450); RDW COEFFICIENT OF VARIATION 19.2 (11.5-15.0); RED BLOOD CELL COUNT(AUTO) 2.95 MIL/uL (4.5-6.0); WHITE BLOOD COUNT (AUTO) 24.4 K/uL (4.3-11.0)
[2018-07-28] MEDS: MIDODRINE HCL (5MG) 5 MG TABLET GT SCH ×3 (09:58→17:51)
[2018-07-28] MEDS: TOPIRAMATE 25 MG TABLET GT SCH (09:59)
[2018-07-28] MEDS: ACETAMINOPHEN 325 MG TABLET PO PRN (09:59)
[2018-07-28] MEDS: ASCORBIC ACID 500 MG TABLET PO SCH (09:59)
[2018-07-28] MEDS: ALLOPURINOL 100 MG TABLET GT SCH (09:59)
[2018-07-28] MEDS: LACTOBACILLUS RHAMNOSUS GG 1 EACH CAP.SPRINK GT SCH ×2 (09:59→18:01)
[2018-07-28] MEDS: MULTIVITAMINS,THERAGRAN 1 UDTAB TABLET GT SCH (09:59)
[2018-07-28] MEDS: DAKINS QUARTER STRENGTH (0.125%) 480 ML BOTTLE TOP SCH (10:01)
[2018-07-28] MEDS: MUPIROCIN OINT 2% 22 GM TUBE SCH ×2 (10:01→20:36)
[2018-07-28 11:10] LABS: EOSINOPHILS % (MANUAL) 7 % (0-4); LYMPHOCYTES % (MANUAL) 8 % (16-48); MONOCYTES % (MANUAL) 17 % (0-11.0); NEUTROPHILS % (MANUAL) 68 (42-76)
[2018-07-28 12:00] VITALS: BP 120/75
[2018-07-28 16:00] VITALS: BP 117/76
--- NOTE | 2018-07-28 19:30 | NUR ---
EEG TECHNOLOGIST NOTES: RECEIVED PT ON BED WITH NO APPARENT DISTRESS NOTED. NO FACIAL GRIMACING OR ANY SIGNS OF PAIN NOTED. ON COOL AEROSOL, NO SOB NOTED. SATURATING WELL. GT INTACT AND PATENT, 10CC OF RESIDUAL NOTED AT THIS TIME. NO SIGNS/SYMPTOMS OF ASPIRATION. RIGHT UPPER ARM MIDLINE INTACT AND PATENT, FLUSHING WELL. ON TELE MONITOR, SINUS TACHY HR 105BPM. KEPT CLEAN, DRY AND COMFORTABLE. SAFETY AND FALL PRECAUTIONS OBSERVED AND MAINTAINED. WILL CONTINUE TO MONITOR PT.
--- NOTE | 2018-07-28 19:30 | NUR ---
FIELD SERVICES DIRECTOR CLOSING NOTES: PT ON BED WITH NO APPARENT DISTRESS NOTED. NO FACIAL GRIMACING OR ANY SIGNS OF PAIN NOTED. ON COOL AEROSOL, NO SOB NOTED. SATURATING WELL. GT INTACT AND PATENT. RIGHT UPPER ARM MIDLINE INTACT AND PATENT, FLUSHING WELL. ON TELE MONITOR, SINUS TACHY HR 106BPM. SAFETY AND FALL PRECAUTIONS OBSERVED AND MAINTAINED.ENDORSED TO PM NURSE FOR RAMON.DIALYSIS DONE.
[2018-07-28 20:00] VITALS: BP 130/49
[2018-07-28] MEDS: COLISTIMETHATE SODIUM 100 MG in IV NS 0.9% 50 ML IV SCH (20:32)
[2018-07-28] MEDS ORDERED: INSULIN GLARGINE, 100 UNIT/ML CARTRIDGE SQ ONE (21:50)
--- NOTE | 2018-07-28 22:00 | NUR ---
RN NOTES LIDIA NOT AVAILABLE, NOT IN NIGHT LOCKER EITHER, CALLED AFTER HOURS PHARMACY AND SPOKE TO ROGERIO. LANTUS WILL BE GIVEN INSTEAD. BRITANY, WINDOW DRESSER AWARE
[2018-07-28] MEDS: ATORVASTATIN 40 MG TABLET GT SCH (22:15)
[2018-07-28] MEDS: INSULIN GLARGINE, 100 UNIT/ML CARTRIDGE SQ SCH (22:19)
--- NOTE | 2018-07-28 23:20 | NUR ---
SECURITY GUARDS DISPATCHER NOTES: RECEIVED A CALL FROM NAOMY MORA (POWER OF RETAIL SUPERVISOR) AND REQUESTED TO HAVE THE CALL HER ON MONDAY AT 2PM.
[2018-07-29] VITALS (8 sets, daily range): BP systolic 86–116; BP diastolic 41–92
[2018-07-29] MEDS ORDERED: VANCOMYCIN 1 GM in IV D5W 250 ML IV ONE (00:30)
[2018-07-29] MEDS ORDERED: VANCOMYCIN 1 GM VIAL ONE (00:32)
[2018-07-29] MEDS: NEPRO 1,000 ML BOTTLE GT SCH (04:35)
[2018-07-29] MEDS: BLOOD SUGAR DIAGNOSTIC 1 EACH STRIP IN SCH ×4 (06:08→23:21)
--- NOTE | 2018-07-29 07:03 | NUR ---
ELECTRICAL ENGINEER NOTES: NO CHANGES NOTED THROUGHOUT THE SHIFT. NO FACIAL GRIMACING OR ANY SIGNS OF PAIN NOTED. ON COOL AEROSOL, NO SOB NOTED. RIGHT UPPER ARM MIDLINE INTACT AND PATENT, FLUSHING WELL. GT INTACT AND PATENT, NO RESIDUAL NOTED AT THIS TIME. WOUND TREATMENT DONE ORDERED. KEPT CLEAN, DRY AND COMFORTABLE. SAFETY AND FALL PRECAUTIONS OBSERVED AND MAINTAINED. WILL ENDORSE TO DAY SHIFT FOR CONTINUITY OF CARE.
[2018-07-29] MEDS ORDERED: FEE PK DOSING 1 MIN EA MC ONE (07:26)
[2018-07-29] MEDS ORDERED: VANCOMYCIN 500 MG in IV D5W 100 ML IV PRN (07:30)
[2018-07-29 07:41] LABS: CALCIUM, SERUM 9.6 mg/dL (8.5-10.1); CARBON DIOXIDE 32 mmol/L (21-32); CHLORIDE 100 mmol/L (98-107); GLUCOSE 138 mg/dL (74-106); SODIUM SERUM 141 mmol/L (136-145); UREA NITROGEN, BLOOD 49 mg/dL (7-18)
--- NOTE | 2018-07-29 08:00 | NUR ---
Oral care and suctioning of 7 portex tracheostomy site. Thick moderate amount of clear secretions. Patient has rhonchi throughout lungs, possible chronic pneumonia on top of history of acinetobacter baumannii.
[2018-07-29 08:59] LABS: BASOPHILS # (AUTO) 0.1 /CMM (0.0-0.2); BASOPHILS % (AUTO) 0.6 % (0.0-2.0); EOSINOPHILS % (AUTO) 3.4 % (0.0-6.0); HEMATOCRIT 28 % (39-51); HEMOGLOBIN 8.9 g/dL (13.5-17.5); LYMPHOCYTES # (AUTO) 2.9 /CMM (0.8-4.8); LYMPHOCYTES % (AUTO) 13.8 % (20.0-44.0); MEAN CORPUSCULAR HGB CONC 32 g/dl (31.0-36.0); MEAN CORPUSCULAR VOLUME 88 fL (80-96); MONOCYTES # (AUTO) 1.7 /CMM (0.1-1.30); MONOCYTES % (AUTO) 8.2 % (2.0-12.0); NEUTROPHILS # (AUTO) 15.5 /CMM (1.8-8.9); PLATELET COUNT (AUTO) 488 /CMM (150-450); RDW COEFFICIENT OF VARIATION 18.3 (11.5-15.0); WHITE BLOOD COUNT (AUTO) 20.9 K/uL (4.3-11.0)
[2018-07-29] MEDS: MULTIVITAMINS,THERAGRAN 1 UDTAB TABLET GT SCH (09:45)
[2018-07-29] MEDS: ASCORBIC ACID 500 MG TABLET PO SCH (09:45)
[2018-07-29] MEDS: ALLOPURINOL 100 MG TABLET GT SCH (09:45)
[2018-07-29] MEDS: MIDODRINE HCL (5MG) 5 MG TABLET GT SCH ×3 (09:45→16:38)
[2018-07-29] MEDS: TOPIRAMATE 25 MG TABLET GT SCH (09:45)
[2018-07-29] MEDS: MUPIROCIN OINT 2% 22 GM TUBE SCH ×2 (09:47→20:34)
[2018-07-29] MEDS: LACTOBACILLUS RHAMNOSUS GG 1 EACH CAP.SPRINK GT SCH ×2 (09:47→16:38)
[2018-07-29] MEDS: DAKINS QUARTER STRENGTH (0.125%) 480 ML BOTTLE TOP SCH (09:47)
--- NOTE | 2018-07-29 10:04 | NUR ---
Oral care, tracheostomy suction and lip moisture applied to lips with bactroban to nares bilaterally.
--- NOTE | 2018-07-29 10:08 | NUR ---
Gastric residual 5ml.
--- NOTE | 2018-07-29 13:51 | NUR ---
Suction of tracheostomy, oral care, repositioning, and emptied gastric drainage of colostomy bag.
--- NOTE | 2018-07-29 14:16 | NUR ---
Cooling measures applied. Tylenol 650mg via g-tube given.
[2018-07-29] MEDS: ACETAMINOPHEN 325 MG TABLET PO PRN (14:54)
--- NOTE | 2018-07-29 16:25 | NUR ---
Doctor Kristen aware of temperature, wbc, and blood pressure. No new orders at this time. Cleansed wound and changed dressing perorders in care plan. Patient linens changed. Bed bath with ANIMAL HUSBANDRY PROFESSOR assist to accomplish the above. Patient tracking internal communications writer and ANIMAL HUSBANDRY PROFESSOR with eye movement appropriately.
[2018-07-29] MEDS ORDERED: SILVER NITRATE APPLICATOR 1 EA BOX TP ONE (17:00)
[2018-07-29] MEDS ORDERED: LIDOCAINE 1%-EPI 1:100,000 20 ML VIAL TP ONE (17:00)
--- NOTE | 2018-07-29 17:02 | NUR ---
Oral care, tracheostomy suctioning, and lip moisturizer applied. Patient tolerated well.
--- NOTE | 2018-07-29 17:17 | NUR ---
Left message for patient power of united states attorney, Suma Bhat, regarding consent for serial debridement wound treatment.
[2018-07-29] MEDS: INSULIN REGULAR, HUMAN 100 UNIT/ML 3 ML VIAL SQ PRN ×2 (18:13→23:26)
--- NOTE | 2018-07-29 19:13 | NUR ---
Handoff to night nurse, Wilfredo Cox RN at this time. Dion Worrell RN
[2018-07-29] MEDS: COLISTIMETHATE SODIUM 100 MG in IV NS 0.9% 50 ML IV SCH (20:02)
[2018-07-29] MEDS: ATORVASTATIN 40 MG TABLET GT SCH (21:21)
[2018-07-29] MEDS ORDERED: METRONIDAZOLE 500MG/ NS 100ML 100 ML IV ONE (22:12)
[2018-07-29] MEDS: METRONIDAZOLE 500MG/ NS 100ML 500 MG in PREMIX 1 EA IV SCH (22:15)
[2018-07-29] MEDS: INSULIN GLARGINE, 100 UNIT/ML CARTRIDGE SQ SCH (23:24)
[2018-07-30] VITALS (8 sets, daily range): BP systolic 92–132; BP diastolic 39–66
[2018-07-30] MEDS ORDERED: MICAFUNGIN SODIUM 100 MG in IV NS 0.9% 100 ML IV SCH ×4 (01:00→17:00)
[2018-07-30] MEDS ORDERED: METRONIDAZOLE 500MG/ NS 100ML 100 ML IV ONE (04:56)
[2018-07-30] MEDS: METRONIDAZOLE 500MG/ NS 100ML 500 MG in PREMIX 1 EA IV SCH ×2 (05:29→13:30)
[2018-07-30] MEDS: BLOOD SUGAR DIAGNOSTIC 1 EACH STRIP IN SCH ×4 (06:21→23:09)
[2018-07-30] MEDS: INSULIN REGULAR, HUMAN 100 UNIT/ML 3 ML VIAL SQ PRN ×3 (06:22→23:11)
--- NOTE | 2018-07-30 06:37 | NUR ---
RN NOTES SPOKE WITH MARYELLEN MORA. HILARIO. OBTAINED CONSENT FOR WOUND DEBRIDEMENT OVER THE TELEPHONE WITNESSED BY 2 RN.
[2018-07-30 07:30] LABS: CARBON DIOXIDE 29 mmol/L (21-32); CHLORIDE 100 mmol/L (98-107); CREATININE 3.9 mg/dL (0.6-1.3); GLUCOSE 152 mg/dL (74-106); POTASSIUM 4.4 mmol/L (3.5-5.1); SODIUM SERUM 139 mmol/L (136-145); UREA NITROGEN, BLOOD 64 mg/dL (7-18)
[2018-07-30 07:58] LABS: EOSINOPHILS % (AUTO) 4.1 % (0.0-6.0); HEMATOCRIT 26 % (39-51); HEMOGLOBIN 8.7 g/dL (13.5-17.5); LYMPHOCYTES # (AUTO) 3.3 /CMM (0.8-4.8); LYMPHOCYTES % (AUTO) 11.4 % (20.0-44.0); MEAN CORPUSCULAR HGB CONC 33 g/dl (31.0-36.0); MEAN CORPUSCULAR VOLUME 88 fL (80-96); MONOCYTES # (AUTO) 1.7 /CMM (0.1-1.30); NEUTROPHILS # (AUTO) 22.4 /CMM (1.8-8.9); NEUTROPHILS % (AUTO) 78.5 % (43.0-81.0); PLATELET COUNT (AUTO) 487 /CMM (150-450); RDW COEFFICIENT OF VARIATION 18.4 (11.5-15.0); RED BLOOD CELL COUNT(AUTO) 2.99 MIL/uL (4.5-6.0); WHITE BLOOD COUNT (AUTO) 28.6 K/uL (4.3-11.0)
[2018-07-30] MEDS: MULTIVITAMINS,THERAGRAN 1 UDTAB TABLET GT SCH (09:34)
[2018-07-30] MEDS: ASCORBIC ACID 500 MG TABLET PO SCH (09:34)
[2018-07-30] MEDS: ALLOPURINOL 100 MG TABLET GT SCH (09:35)
[2018-07-30] MEDS: MIDODRINE HCL (5MG) 5 MG TABLET GT SCH ×3 (09:35→17:08)
[2018-07-30] MEDS: LACTOBACILLUS RHAMNOSUS GG 1 EACH CAP.SPRINK GT SCH ×2 (09:36→17:08)
[2018-07-30] MEDS: MUPIROCIN OINT 2% 22 GM TUBE SCH ×2 (09:37→20:18)
[2018-07-30] MEDS: DAKINS QUARTER STRENGTH (0.125%) 480 ML BOTTLE TOP SCH (09:42)
[2018-07-30] MEDS: TOPIRAMATE 25 MG TABLET GT SCH (09:42)
[2018-07-30 10:04] LABS: BAND % (MANUAL) 4 % (0.0-5.0); BASOPHILS % (MANUAL) 0 % (0.0-2.0); EOSINOPHILS % (MANUAL) 2 % (0-4); LYMPHOCYTES % (MANUAL) 10 % (16-48); MONOCYTES % (MANUAL) 6 % (0-11.0); NEUTROPHILS % (MANUAL) 78 (42-76)
--- NOTE | 2018-07-30 11:45 | NUR ---
Suction of patient. Dialysis nurse unable to complete treatment from permanent left upper arm access as patient had temporary dialysis access removed for culture of the tip. Dialysis nurse called to MD to notify of current status.
[2018-07-30] MEDS: ACETAMINOPHEN 325 MG TABLET PO PRN (17:07)
--- NOTE | 2018-07-30 19:30 | NUR ---
Handoff to night nurse, Wilfredo Cox RN. Dion Worrell RN
--- NOTE | 2018-07-30 19:47 | NUR ---
RN NOTES RECEIVED CALL FROM MARYELLEN SOTELO. AND VERBALIZED SHE SPOKE WITH THE REST OF THE FAMILY, AND AGREED THAT THEY "DO NOT" WANT TO DO DNR. WILL ENDORSE TO NEXT SHIFT
--- NOTE | 2018-07-30 19:57 | NUR ---
RT CALLED TO PT BEDSIDE FOR LOW SPO2. PT FOUND WITH SPO2 IN LOW 80S. FIO2 INCREASED AND PT SUCTIONED A LARGE AMOUNT OF THICK YELLOW SECRETIONS. SPO2 IMPROVED TO 99%. PT HR 135 AT THIS TIME. PT RETURNED TO 40% FIO2 Addendum: 07/30/18 at 2001 by SHEBA YAO RT Amended: Links added.
--- NOTE | 2018-07-30 19:59 | NUR ---
PT RECEIVED ON COOL AEROSOL 40% VIA TRACH PORTEX 7, SECURED VIA TRACH TIE. PT UNRESPONSIVE. SUCTIONED A LARGE AMOUNT OF THICK YELLOW SECRETIONS. HR ELEVATED TO 135 AT THIS TIME. AMBU BAG AT BEDSIDE. HEAD OF BED AT ABOUT 30 DEGREES. Addendum: 07/30/18 at 2001 by SHEBA YAO RT Amended: Links added.
[2018-07-30] MEDS: COLISTIMETHATE SODIUM 100 MG in IV NS 0.9% 50 ML IV SCH (20:15)
[2018-07-30] MEDS: ATORVASTATIN 40 MG TABLET GT SCH (21:20)
[2018-07-30] MEDS: INSULIN GLARGINE, 100 UNIT/ML CARTRIDGE SQ SCH (23:10)
[2018-07-31] VITALS (51 sets, daily range): BP systolic 60–129; BP diastolic 20–72
[2018-07-31] MEDS: BLOOD SUGAR DIAGNOSTIC 1 EACH STRIP IN SCH ×3 (05:46→17:00)
[2018-07-31] MEDS: INSULIN REGULAR, HUMAN 100 UNIT/ML 3 ML VIAL SQ PRN ×3 (05:48→17:01)
--- NOTE | 2018-07-31 07:20 | NUR ---
GLOST TILE SHADER OPENING NOTES RECEIVED REPORT FROM PN NURSE,PATIENT IN BED ,RESPONDS TO TOUCH AND LIGHT PAIN.. TRACH ,ON COOL AEROSOL. ON FIO2 40%. NO SOB NO DISTRESS NOTED AT THIS TIME. BRENNON MIDLINE IV FLUIDS TKO/PATENT. L AV FISTULA MALFUNCTION. GTUBE, NEPHRO @50ML/HR,. ON TELE ST 129. BED IN LOCKED/LOWEST POSITION. SIDE RAILS UPX3. CALL LIGHT IN REACH. WILL CONT TO MONITOR.
[2018-07-31] MEDS: LACTOBACILLUS RHAMNOSUS GG 1 EACH CAP.SPRINK GT SCH ×2 (08:07→16:56)
[2018-07-31] MEDS: MIDODRINE HCL (5MG) 5 MG TABLET GT SCH ×3 (08:07→16:57)
[2018-07-31 08:08] LABS: BASOPHILS % (AUTO) 0.1 % (0.0-2.0); EOSINOPHILS % (AUTO) 1.8 % (0.0-6.0); HEMATOCRIT 24 % (39-51); HEMOGLOBIN 7.9 g/dL (13.5-17.5); LYMPHOCYTES # (AUTO) 5.5 /CMM (0.8-4.8); LYMPHOCYTES % (AUTO) 18.7 % (20.0-44.0); MEAN CORPUSCULAR HGB CONC 33 g/dl (31.0-36.0); MEAN CORPUSCULAR VOLUME 88 fL (80-96); MONOCYTES # (AUTO) 2.3 /CMM (0.1-1.30); MONOCYTES % (AUTO) 7.7 % (2.0-12.0); NEUTROPHILS % (AUTO) 71.7 % (43.0-81.0); PLATELET COUNT (AUTO) 414 /CMM (150-450); RDW COEFFICIENT OF VARIATION 18.3 (11.5-15.0); RED BLOOD CELL COUNT(AUTO) 2.73 MIL/uL (4.5-6.0); WHITE BLOOD COUNT (AUTO) 29.3 K/uL (4.3-11.0)
[2018-07-31] MEDS: ALLOPURINOL 100 MG TABLET GT SCH (08:08)
[2018-07-31] MEDS: MULTIVITAMINS,THERAGRAN 1 UDTAB TABLET GT SCH (08:08)
[2018-07-31] MEDS: ASCORBIC ACID 500 MG TABLET PO SCH (08:08)
[2018-07-31] MEDS: TOPIRAMATE 25 MG TABLET GT SCH (08:08)
[2018-07-31] MEDS: ACETAMINOPHEN 325 MG TABLET PO PRN ×2 (08:08→16:57)
[2018-07-31] MEDS: MUPIROCIN OINT 2% 22 GM TUBE SCH ×2 (08:13→20:51)
[2018-07-31] MEDS: DAKINS QUARTER STRENGTH (0.125%) 480 ML BOTTLE TOP SCH (08:13)
[2018-07-31 08:14] LABS: CARBON DIOXIDE 30 mmol/L (21-32); CHLORIDE 100 mmol/L (98-107); CREATININE 4.8 mg/dL (0.6-1.3); GLUCOSE 159 mg/dL (74-106); POTASSIUM 4.5 mmol/L (3.5-5.1); SODIUM SERUM 142 mmol/L (136-145)
[2018-07-31 08:15] LABS: UREA NITROGEN, BLOOD 83 mg/dL (7-18)
--- NOTE | 2018-07-31 09:00 | NUR ---
FINISHED CLOTH EXAMINER NOTES SEEN BY UPDATED ABOUT PATIENT CONDITION.NOTIFIED THAT PATIENT GAS ELEVATED TEMP OF 102.2 AND TACHYCARDIC.WILL CONTINUE TO MONITOR.
--- NOTE | 2018-07-31 10:00 | NUR ---
DEPARTMENT ADMINISTRATOR NOTES RECHECK BP AND TEMP ,BP -78/35,[id number].STILL TACHYCARDIC.DR RICHMOND MADE AWARE,UPDATED ABOUT PATIENT CONDITION WITH LABS ,GOT NEW ORDERS.
[2018-07-31] MEDS ORDERED: NOREPINEPHRINE 16 MG in IV D5W 500 ML IV PRN (10:30)
[2018-07-31] MEDS ORDERED: IV NS 0.9% 1,000 ML IV PRN (10:30)
--- NOTE | 2018-07-31 10:45 | NUR ---
GENERAL LOT ATTENDANT NOTE SEEN BY TOBI VERAS MADE AWARE ABOUT PATIENT CONDITION,GOT ORDER FOR TRANSFER TO ICU.CHARGE NURSE MADE AWARE.WAITING FOR BED.
[2018-07-31 10:57] LABS: ABG BASE EXCESS 0.5 mmol/L; ABG OXYGEN SATURATION 91.8 % (92.0-98.5); ABG PCO2 32.6 mmHg (35.0-45.0); ABG PO2 66.3 mmHg (75.0-100.0); AaDO2 325.6 mmHg; COHb 0.4 % (0.5-1.5); MetHb 0.9 % (0.0-1.5); O2Hb 90.6 % (94.0-97.0); SITE, ABG Right Radial; VENT MODE, BG CA 60%
--- NOTE | 2018-07-31 11:00 | NUR ---
RN NOTE ROBBY GOODE NOTIFIED ABOUT PATIENT FULL CODE STATUS FROM [facility].
--- NOTE | 2018-07-31 11:00 | NUR ---
DINING CAR STEWARDHOTEL CONTROLLER NOTE PATIENT TRANSFERRED TO ICU PER ACLS PROTOCOL,REPORT GIVEN TO NURSE GOODE.PATIENT IS RESPOND TO TOUCH AND LIGHT PAIN,NO SOB NO DISTRESS NOTED AT THIS TIME.LOW BP ON IVF NS BOLUS ONGOING.IV SITE INTACT AND PATENT.
[2018-07-31 11:34] LABS: EOSINOPHILS % (MANUAL) 3 % (0-4); LYMPHOCYTES % (MANUAL) 15 % (16-48); MONOCYTES % (MANUAL) 10 % (0-11.0); NEUTROPHILS % (MANUAL) 72 (42-76)
--- NOTE | 2018-07-31 12:15 | NUR ---
RIVET TOSSER NOTE RCVD PT AROOUND 1115 ABLE TO OPEN EYES, NOT FOLLOWING COMMANDS, ST ON TELE, TOLERATING COOL AEROSOL VIA TRACH, MODERATE AMOUNT OF SECRETIONS FROM TRACH AREA. PER REPORT PT ANURIC, PEG PLACEMENT VERIFIED BY AUSCULTATION/ASPIRATION. 400 ML RESIDUAL OBTAINED UPON ASPIRATING. DR. RICHMOND IN UNIT INFORMED AND MD RECOMMENDED TO DISCARD RESIDUAL AND HOLD TUBE FEEDING FOR NOW. BRENNON MIDLINE C/D/I/PATENT. NO S/O INFILTRATION/PHLEBITIS OBSERVED. RCVD ORDER FOR LEVOPHED FROM DR. RICHMOND AND PICC INSERTION FROM TOBI VERAS. ARIANA, APPRENTICE STYLIST INFORMED TO CONTACT PICC LINE RN, CONSENT OBTAINED FROM PT'S SON OVER THE PHONE. COLOSTOMY BAG FULL OF LIQUID, FOUL SMELLING STOOL, THIS WAS EMPTIED. WILL CONTINUE TO MONITOR PT FOR SAFETY AND COMFORT. BED IN LOW AND LOCKED POSITION. PER TOBI VERAS PT'S CODE STATUS CHANGED TO DNR.
[2018-07-31 12:40] LABS: ALBUMIN 1.6 g/dL (3.4-5.0); BILIRUBIN,DIRECT 0.1 mg/dL (0.0-0.2); BILIRUBIN,TOTAL 0.4 mg/dL (0.2-1.0); TOTAL PROTEIN, SERUM 6.5 g/dL (6.4-8.2)
[2018-07-31] MEDS: NOREPINEPHRINE 16 MG in IV D5W 500 ML IV PRN (12:57)
[2018-07-31] MEDS: Z GUARD REMEDY 2 OZ OINT TP PRN (17:06)
[2018-07-31] MEDS: NEPRO 1,000 ML BOTTLE GT SCH (17:13)
--- NOTE | 2018-07-31 18:05 | NUR ---
GENERATION ENGINEER NOTE PT REMAINS ON COOL AEROSOL, ST ON MONITOR, TUBE FEEDING RESUMED AT HALF THE RATE AFTER NOT ASPIRATING ANY RESIDUAL SINCE PT WAS ADMITTED TO ICU. COLOSTOMY BAG CHANGED WITH MORE LIQUID STOOL. BRENNON PICC LINE INSERTED BY PICC, RN. WOUND CARE DONE ORDERED. PT'S SISTER AT BEDSIDE UPDATED ON PT'S CONDITION. PT'S CARE WILL BE ENDORSED TO COOK PIE RN FOR CONTINUITY OF CARE. BED IN LOW AND LOCKED POSITION.
[2018-07-31] MEDS: HYDROCODONE/APAP 5/325MG 1 EACH TABLET PO PRN (18:30)
--- NOTE | 2018-07-31 18:44 | NUR ---
STONE SAWYER NOTE COOLING BLANKET IN PLACE, PT'S TEMP CONTINUES TO INCREASE DESPITE TYLENOL GIVEN EARLIER TODAY.
--- NOTE | 2018-07-31 20:16 | NUR ---
RECEIVED PT ON COOL AEROSOL 40%, TRACHED PTX 7. SX'D FOR MOD AMT OF THICK WHITE SECRETIONS. WILL CONTINUE TO MONITOR. Addendum: 07/31/18 at 2018 by BIRGIT BYRNE RT Amended: Links added.
[2018-07-31] MEDS: COLISTIMETHATE SODIUM 100 MG in IV NS 0.9% 50 ML IV SCH (20:50)
[2018-07-31] MEDS: ATORVASTATIN 40 MG TABLET GT SCH (20:51)
[2018-07-31] MEDS: INSULIN GLARGINE, 100 UNIT/ML CARTRIDGE SQ SCH (22:30)
[2018-08-01] VITALS (91 sets, daily range): BP systolic 63–147; BP diastolic 31–115
[2018-08-01] MEDS: INSULIN REGULAR, HUMAN 100 UNIT/ML 3 ML VIAL SQ PRN ×4 (00:32→18:02)
[2018-08-01] MEDS: BLOOD SUGAR DIAGNOSTIC 1 EACH STRIP IN SCH ×4 (00:33→17:59)
[2018-08-01 05:08] LABS: ALANINE AMINOTRANSFERASE 6 U/L (12-78); ALBUMIN 1.8 g/dL (3.4-5.0); ALKALINE PHOSPHATASE 147 U/L (46-116); ASPARTATE AMINOTRANSFERASE 24 U/L (15-37); BILIRUBIN,TOTAL 0.5 mg/dL (0.2-1.0); CALCIUM, SERUM 10.4 mg/dL (8.5-10.1); CARBON DIOXIDE 29 mmol/L (21-32); CHLORIDE 98 mmol/L (98-107); CREATININE 5.1 mg/dL (0.6-1.3); GLUCOSE 197 mg/dL (74-106); MAGNESIUM 2.1 mg/dL (1.8-2.4); PHOSPHORUS 5.5 mg/dL (2.5-4.9); POTASSIUM 4.6 mmol/L (3.5-5.1); SODIUM SERUM 139 mmol/L (136-145); TOTAL PROTEIN, SERUM 7.2 g/dL (6.4-8.2)
[2018-08-01 05:15] LABS: UREA NITROGEN, BLOOD 98 mg/dL (7-18)
[2018-08-01] MEDS: ACETAMINOPHEN 325 MG TABLET PO PRN (06:07)
[2018-08-01 06:09] LABS: EOSINOPHILS % (AUTO) 2.9 % (0.0-6.0); HEMATOCRIT 24 % (39-51); HEMOGLOBIN 7.3 g/dL (13.5-17.5); LYMPHOCYTES % (AUTO) 7.8 % (20.0-44.0); MEAN CORPUSCULAR HGB CONC 31 g/dl (31.0-36.0); MEAN CORPUSCULAR VOLUME 88 fL (80-96); MONOCYTES % (AUTO) 5.8 % (2.0-12.0); NEUTROPHILS % (AUTO) 83.1 % (43.0-81.0); PLATELET COUNT (AUTO) 408 /CMM (150-450); RED BLOOD CELL COUNT(AUTO) 2.68 MIL/uL (4.5-6.0)
[2018-08-01 06:10] LABS: BASOPHILS % (AUTO) 0.4 % (0.0-2.0)
[2018-08-01 06:11] LABS: WHITE BLOOD COUNT (AUTO) 42.3 K/uL (4.3-11.0)
[2018-08-01] MEDS: LACTOBACILLUS RHAMNOSUS GG 1 EACH CAP.SPRINK GT SCH ×2 (08:48→17:55)
[2018-08-01] MEDS: TOPIRAMATE 25 MG TABLET GT SCH (08:49)
[2018-08-01] MEDS: MULTIVITAMINS,THERAGRAN 1 UDTAB TABLET GT SCH (08:49)
[2018-08-01] MEDS: MIDODRINE HCL (5MG) 5 MG TABLET GT SCH ×3 (08:50→17:55)
[2018-08-01] MEDS: ALLOPURINOL 100 MG TABLET GT SCH (08:50)
[2018-08-01] MEDS: ASCORBIC ACID 500 MG TABLET PO SCH (08:50)
[2018-08-01] MEDS: MUPIROCIN OINT 2% 22 GM TUBE SCH ×2 (08:55→21:44)
[2018-08-01 09:14] LABS: BAND % (MANUAL) 1 % (0.0-5.0); EOSINOPHILS % (MANUAL) 6 % (0-4); LYMPHOCYTES % (MANUAL) 4 % (16-48); MONOCYTES % (MANUAL) 5 % (0-11.0); NEUTROPHILS % (MANUAL) 84 (42-76)
[2018-08-01] MEDS: DAKINS QUARTER STRENGTH (0.125%) 480 ML BOTTLE TOP SCH (10:33)
[2018-08-01] MEDS: NOREPINEPHRINE 16 MG in IV D5W 500 ML IV PRN (10:42)
[2018-08-01] MEDS: NEPRO 1,000 ML BOTTLE GT SCH (14:09)
[2018-08-01] MEDS ORDERED: VANCOMYCIN POST DIALYSIS 500MG IV PRN ×2 (18:00)
--- NOTE | 2018-08-01 19:25 | NUR ---
ICU/APPLE PEELER OPERATOR TECH AT THE BEDSIDE DOING LEFT ARM DOPPLER, TO VERIFY IF AV SHUNT IS STILL GOOD. AWAIT RESULTS.
--- NOTE | 2018-08-01 19:30 | NUR ---
RN CLOSING NOTES: PATIENT RESTING IN BED. NONLABORED BREATHING NOTED ON COOL AEROSOL FIO2 OF 35 WITH RATE OF 10, PORTEX 7 PICCLINE AND MIDDLINE ON RIGHT UPPER ARM PATENT AND INTACT. AV SHUNT ON LEFT ARM NOTED WITH NO BLEEDING, BRUIT/THRILL PRESENT GTUBE FEEDING RUNNING AT 40 ML/HOUR , NO RESIDUALS NOTED- FEEDING ADVANCED DURING SHIFT COLOSTOMY BAG CHANGED, WATERY YENIFER COLOR OUTPUT NOTED. PATIENT KEPT CLEAN AND DRY THROUGHOUT SHIFT. WOUND CARE DONE THROUGHT SHIFT TURNED AND REPOSITIONED EVERY 2 HOURS. NO SEIZURES NOTED THROUGHOUT SHIFT LEVOPHED CURRENTLY AT 4 MCG/MIN ENDORSED TO NEXT RN PATIENT SR -STACH THROUGHOUT SHIFT NOW AT 113, SINUS TACHYCARDIA
[2018-08-01] MEDS: COLISTIMETHATE SODIUM 100 MG in IV NS 0.9% 50 ML IV SCH (20:04)
--- NOTE | 2018-08-01 21:00 | NUR ---
ICU/MOTOR REBUILDER CAN'T FIND REPORT FOR LEFT ARM VENOUS DOPPLER REPORT, NOT IN CHART NOR IN THE COMPUTER. CHARGE AWARE THAT UNABLE TO FIND THIS REPORT.
--- NOTE | 2018-08-01 21:32 | NUR ---
RECEIVED PT ON COOL AEROSOL 35%, TRACHED PTX 7. SX'D FOR MOD AMT OF THICK WHITE SECRETIONS. WILL CONTINUE TO MONITOR. Addendum: 08/01/18 at 2132 by BIRGIT BYRNE RT Amended: Links added.
[2018-08-01] MEDS: METRONIDAZOLE 500 MG TABLET PO SCH (21:43)
[2018-08-01] MEDS: ATORVASTATIN 40 MG TABLET GT SCH (21:43)
[2018-08-01] MEDS: INSULIN GLARGINE, 100 UNIT/ML CARTRIDGE SQ SCH (22:06)
--- NOTE | 2018-08-01 23:20 | NUR ---
ICU/WARDROBE SUPERVISOR PT'S BLOOD PRESSURE WAS 87/45 THEN 82/36. NOTIFIED CHARGE NURSE ABOUT THE LOW BLOOD PRESSURE. LEVO WAS INCREASED TO 6MCG FROM 4MCG. WILL CONTINUE TO MONITOR THE PT'S BLOOD PRESSURE.
[2018-08-02] VITALS (87 sets, daily range): BP systolic 61–173; BP diastolic 23–72
[2018-08-02] MEDS: BLOOD SUGAR DIAGNOSTIC 1 EACH STRIP IN SCH ×5 (00:58→23:46)
[2018-08-02] MEDS: ACETAMINOPHEN 325 MG TABLET PO PRN ×2 (00:59→22:47)
--- NOTE | 2018-08-02 01:13 | NUR ---
ICU/RISK ASSESSMENT CONSULTANT PT'S BLOOD PRESSURE WAS 86/42 THEN 83/37. NOTIFIED CHARGE NURSE ABOUT THE LOW BLOOD PRESSURE. LEVO WAS INCREASED TO 8MCG FROM 6MCG. WILL CONTINUE TO MONITOR THE PT'S BLOOD PRESSURE EVERY 15 MINUTES TILL STABLE. ALSO TEMP IS 101.3 GAVE TYLENOL 650MG VIA G-TUBE FOR THIS. PT CONTINUE TO HAVE A RECTAL PROBE FOR TEMP, COOLING BLANKET APPLIED.
--- NOTE | 2018-08-02 01:45 | NUR ---
ICU/GUMMING MACHINE OPERATOR PT'S BLOOD PRESSURE WAS IN THE 80'S FOR 2 CYCLES. NOTIFIED CHARGE NURSE ABOUT THE LOW BLOOD PRESSURE. LEVO WAS INCREASED TO 10MCG FROM 8MCG. WILL CONTINUE TO MONITOR THE PT'S BLOOD PRESSURE EVERY 15 MINUTES TILL STABLE. PT WAS TURNED AND REPOSITIONED FOR COMFORT AND CARE.
--- NOTE | 2018-08-02 03:33 | NUR ---
ICU/EQUAL OPPORTUNITY COUNSELOR PT'S BLOOD PRESSURE WAS IN THE 80'S FOR 2 CYCLES, AGAIN. NOTIFIED CHARGE NURSE ABOUT THE LOW BLOOD PRESSURE. LEVO WAS INCREASED TO 12MCG FROM 10MCG. WILL CONTINUE TO MONITOR THE PT'S BLOOD PRESSURE EVERY 15 MINUTES TILL STABLE. PT WAS TURNED AND REPOSITIONED FOR COMFORT AND CARE.
--- NOTE | 2018-08-02 04:10 | NUR ---
ICU/PRECISION MACHINIST PT'S G/TUBE FEEDING RESIDUALS WAS 260 ML, FEEDING IS PLACED ON HOLD. WILL CONTINUE TO MONITOR PT'S FEEDING. PT WAS THEN TURNED AND REPOSITIONED FOR COMFORT AND CARE.
[2018-08-02 04:58] LABS: BASOPHILS # (AUTO) 0.1 /CMM (0.0-0.2); BASOPHILS % (AUTO) 0.2 % (0.0-2.0); EOSINOPHILS % (AUTO) 3.3 % (0.0-6.0); HEMATOCRIT 22 % (39-51); LYMPHOCYTES # (AUTO) 2.7 /CMM (0.8-4.8); LYMPHOCYTES % (AUTO) 8.4 % (20.0-44.0); MEAN CORPUSCULAR HGB CONC 31 g/dl (31.0-36.0); MEAN CORPUSCULAR VOLUME 89 fL (80-96); MONOCYTES # (AUTO) 1.4 /CMM (0.1-1.30); MONOCYTES % (AUTO) 4.5 % (2.0-12.0); NEUTROPHILS # (AUTO) 26.7 /CMM (1.8-8.9); NEUTROPHILS % (AUTO) 83.6 % (43.0-81.0); PLATELET COUNT (AUTO) 444 /CMM (150-450); RDW COEFFICIENT OF VARIATION 19.4 (11.5-15.0); RED BLOOD CELL COUNT(AUTO) 2.41 MIL/uL (4.5-6.0)
[2018-08-02 05:19] LABS: HEMOGLOBIN 6.6 g/dL (13.5-17.5)
[2018-08-02 05:28] LABS: CALCIUM, SERUM 10.2 mg/dL (8.5-10.1); CARBON DIOXIDE 29 mmol/L (21-32); CHLORIDE 97 mmol/L (98-107); CREATININE 5.6 mg/dL (0.6-1.3); GLUCOSE 141 mg/dL (74-106); MAGNESIUM 2.2 mg/dL (1.8-2.4); PHOSPHORUS 4.9 mg/dL (2.5-4.9); POTASSIUM 4.2 mmol/L (3.5-5.1); SODIUM SERUM 137 mmol/L (136-145)
[2018-08-02 05:31] LABS: UREA NITROGEN, BLOOD 107 mg/dL (7-18)
--- NOTE | 2018-08-02 05:36 | NUR ---
ICU/COUNTER PERSON PT'S BP WAS 170/86, CHARGE NURSE DECREASED LEVO FROM 12 TO 8 MCG. WILL CONTINUE TO MONITOR PT'S BLOOD PRESSURE.
[2018-08-02] MEDS: METRONIDAZOLE 500 MG TABLET PO SCH ×3 (05:44→21:03)
[2018-08-02] MEDS: INSULIN REGULAR, HUMAN 100 UNIT/ML 3 ML VIAL SQ PRN ×3 (05:46→17:43)
[2018-08-02 05:47] LABS: BASOPHILS # (AUTO) 0.1 /CMM (0.0-0.2); BASOPHILS % (AUTO) 0.2 % (0.0-2.0); EOSINOPHILS % (AUTO) 2.8 % (0.0-6.0); HEMATOCRIT 24 % (39-51); HEMOGLOBIN 7.4 g/dL (13.5-17.5); LYMPHOCYTES % (AUTO) 9.2 % (20.0-44.0); MEAN CORPUSCULAR HGB CONC 31 g/dl (31.0-36.0); MEAN CORPUSCULAR VOLUME 89 fL (80-96); MONOCYTES # (AUTO) 1.8 /CMM (0.1-1.30); MONOCYTES % (AUTO) 5.5 % (2.0-12.0); NEUTROPHILS # (AUTO) 26.4 /CMM (1.8-8.9); NEUTROPHILS % (AUTO) 82.3 % (43.0-81.0); PLATELET COUNT (AUTO) 412 /CMM (150-450); RDW COEFFICIENT OF VARIATION 19.8 (11.5-15.0); RED BLOOD CELL COUNT(AUTO) 2.69 MIL/uL (4.5-6.0)
[2018-08-02 06:00] LABS: WHITE BLOOD COUNT (AUTO) 32.1 K/uL (4.3-11.0)
--- NOTE | 2018-08-02 06:04 | NUR ---
ICU/GRID INSPECTOR PT'S BP WAS 140/42, CHARGE NURSE DECREASED LEVO FROM 8 TO 6 MCG. WILL CONTINUE TO MONITOR PT'S BLOOD PRESSURE.
[2018-08-02] MEDS: ASCORBIC ACID 500 MG TABLET PO SCH (08:12)
[2018-08-02] MEDS: MULTIVITAMINS,THERAGRAN 1 UDTAB TABLET GT SCH (08:12)
[2018-08-02] MEDS: MIDODRINE HCL (5MG) 5 MG TABLET GT SCH ×3 (08:12→17:26)
[2018-08-02] MEDS: ALLOPURINOL 100 MG TABLET GT SCH (08:12)
[2018-08-02] MEDS: LACTOBACILLUS RHAMNOSUS GG 1 EACH CAP.SPRINK GT SCH ×2 (08:12→17:25)
[2018-08-02] MEDS: TOPIRAMATE 25 MG TABLET GT SCH (08:12)
[2018-08-02] MEDS: MUPIROCIN OINT 2% 22 GM TUBE SCH ×2 (08:13→21:06)
[2018-08-02] MEDS: DAKINS QUARTER STRENGTH (0.125%) 480 ML BOTTLE TOP SCH (08:13)
--- NOTE | 2018-08-02 09:19 | NUR ---
RN NOTE 0720: Received patient awake, tracks voice but does not follow commands. With trache to cool aerosol @ 35% FIO2 sat 100%, noted with moderate amount of thick and frothy sputum when suctioned. With GT intact, feeding on hold from previous shift due to high residuals, will continue to monitor. Temp 97.7 at this time. BRENNON PICC intact, on Levo @ 6mcg, will titrate as ordered. On isolation prec for mrsa and Acineto. 0910: No any significant changes noted at this time. Remained on Levophed, afebrile. Noted patient with 10mL residuals, will restart GT feeding @ 20mLs/hr.
--- NOTE | 2018-08-02 10:06 | NUR ---
RN NOTE 0920: S/E by Dr. Crews, no new order a tthis time.
--- NOTE | 2018-08-02 19:04 | NUR ---
PT RECEIVED WITH A PORTEX 7 TRACH ON COOL AEROSOL 28% 5L . PT RESPONDS TO STIMULI WHEN SUCTION. SUCTIONED MODERATE AMOUNT OF PALE YELLOW SECRETIONS. NO RESPIRATORY DISTRESS NOTED AT THIS TIME, WILL CONTINUE TO MONITOR
--- NOTE | 2018-08-02 19:30 | NUR ---
PRODUCTION CORRUGATOR RCD PT W/DX SEPSIS; PT IS OBTUNDED. ST ON MONITOR. T PIECE 28 % THICK WHITE SECRETIONS.
[2018-08-02] MEDS: COLISTIMETHATE SODIUM 100 MG in IV NS 0.9% 50 ML IV SCH (20:39)
[2018-08-02] MEDS: ATORVASTATIN 40 MG TABLET GT SCH (22:33)
[2018-08-02] MEDS: INSULIN GLARGINE, 100 UNIT/ML CARTRIDGE SQ SCH (22:37)
--- NOTE | 2018-08-02 22:50 | NUR ---
PUTTYING AND CALKING SUPERVISOR TEMP NOTICED 100.3 RECTAL; TYLENOL ADMINISTERED. COOLING MEASURES INITIATED.
[2018-08-02] MEDS ORDERED: NOREPINEPHRINE 4 MG/4 ML AMPUL IV ONE (23:45)
[2018-08-02] MEDS: NEPRO 1,000 ML BOTTLE GT SCH (23:46)
[2018-08-02] MEDS: NOREPINEPHRINE 16 MG in IV D5W 500 ML IV PRN (23:47)
--- NOTE | 2018-08-02 23:50 | NUR ---
ELEMENTARY SCHOOL COUNSELOR BP 71/33 LEVOPHED STARTED @ 2 MCG/MIN. CONTINUE TO MONITOR.
[2018-08-03] VITALS (99 sets, daily range): BP systolic 66–143; BP diastolic 31–59
--- NOTE | 2018-08-03 | NUR ---
OIL REFINERY PROCESS TECHNICIAN TUBE FEEDING RESIDUAL 200; HOLD AND CONTINUE TO MONITOR.
[2018-08-03 04:48] LABS: CALCIUM, SERUM 10.5 mg/dL (8.5-10.1); CARBON DIOXIDE 28 mmol/L (21-32); CHLORIDE 94 mmol/L (98-107); GLUCOSE 212 mg/dL (74-106); POTASSIUM 4.4 mmol/L (3.5-5.1); SODIUM SERUM 136 mmol/L (136-145)
[2018-08-03 04:51] LABS: UREA NITROGEN, BLOOD 110 mg/dL (7-18)
[2018-08-03] MEDS: METRONIDAZOLE 500 MG TABLET PO SCH ×3 (05:20→21:46)
[2018-08-03 05:42] LABS: BASOPHILS % (AUTO) 0.1 % (0.0-2.0); EOSINOPHILS % (AUTO) 2.4 % (0.0-6.0); HEMATOCRIT 24 % (39-51); HEMOGLOBIN 7.7 g/dL (13.5-17.5); LYMPHOCYTES # (AUTO) 3.7 /CMM (0.8-4.8); LYMPHOCYTES % (AUTO) 10.3 % (20.0-44.0); MEAN CORPUSCULAR HGB CONC 31 g/dl (31.0-36.0); MEAN CORPUSCULAR VOLUME 88 fL (80-96); MONOCYTES # (AUTO) 1.6 /CMM (0.1-1.30); MONOCYTES % (AUTO) 4.4 % (2.0-12.0); NEUTROPHILS # (AUTO) 29.4 /CMM (1.8-8.9); NEUTROPHILS % (AUTO) 82.8 % (43.0-81.0); PLATELET COUNT (AUTO) 442 /CMM (150-450); RDW COEFFICIENT OF VARIATION 19.6 (11.5-15.0); RED BLOOD CELL COUNT(AUTO) 2.77 MIL/uL (4.5-6.0)
[2018-08-03 05:49] LABS: WHITE BLOOD COUNT (AUTO) 35.5 K/uL (4.3-11.0)
--- NOTE | 2018-08-03 06:00 | NUR ---
BELT BRANDER NEPRO RESTARTED AT 20 ML/HR; CONTINUE TO MONITOR.
[2018-08-03] MEDS: INSULIN REGULAR, HUMAN 100 UNIT/ML 3 ML VIAL SQ PRN ×3 (06:12→17:25)
[2018-08-03 06:13] LABS: EOSINOPHILS % (MANUAL) 4 % (0-4); LYMPHOCYTES % (MANUAL) 14 % (16-48); MONOCYTES % (MANUAL) 1 % (0-11.0); NEUTROPHILS % (MANUAL) 81 (42-76)
[2018-08-03] MEDS: BLOOD SUGAR DIAGNOSTIC 1 EACH STRIP IN SCH ×3 (06:22→17:24)
--- NOTE | 2018-08-03 07:12 | NUR ---
Report received from Taylor BUSTAMANTE for nancy. Pt appears in no acute distress at this time.
--- NOTE | 2018-08-03 08:00 | NUR ---
Received pt in ICU 252 on T-piece, tolerating well with good saturation on 28% O2. Opens eyes but no response, unable to follow commands. Colostomy bag in place with no leaks. Nepro feeding thru G-Tube running at 20cc/hr, 0cc residual, increased feeding to rate 30cc/hr with goal of 50cc/hr as tolerated. [place] AKAs noted. Pt turned. Levophed running at 12mcg/min thru BRENNON PICC, tolerating well. Noted SR 90's with occasional PVCs. Continue to monitor.
[2018-08-03] MEDS: LACTOBACILLUS RHAMNOSUS GG 1 EACH CAP.SPRINK GT SCH ×2 (09:08→17:24)
[2018-08-03] MEDS: ASCORBIC ACID 500 MG TABLET PO SCH (09:09)
[2018-08-03] MEDS: ALLOPURINOL 100 MG TABLET GT SCH (09:09)
[2018-08-03] MEDS: MIDODRINE HCL (5MG) 5 MG TABLET GT SCH ×3 (09:09→17:24)
[2018-08-03] MEDS: MULTIVITAMINS,THERAGRAN 1 UDTAB TABLET GT SCH (09:09)
[2018-08-03] MEDS: TOPIRAMATE 25 MG TABLET GT SCH (09:09)
[2018-08-03] MEDS: DAKINS QUARTER STRENGTH (0.125%) 480 ML BOTTLE TOP SCH (09:09)
[2018-08-03] MEDS: MUPIROCIN OINT 2% 22 GM TUBE SCH ×2 (09:10→21:46)
--- NOTE | 2018-08-03 10:50 | NUR ---
per gasoline plant operator Angeilque, please edit feeding order to 50cc/hr for 24 hours.
--- NOTE | 2018-08-03 11:56 | NUR ---
Pt's sister present at the bedside. Updated on plan of care.
--- NOTE | 2018-08-03 12:36 | NUR ---
Levophed decreased to 10mcg/min for BP 131/51. continue to monitor closely.
--- NOTE | 2018-08-03 13:04 | NUR ---
Levophed drip increased to 12mcg/min for hypotension 80/43. continue to monitor closely.
--- NOTE | 2018-08-03 16:00 | NUR ---
jairo-care rendered, linens changed. NAD noted. VSS, tolerating on 12mcg/min of levophed.
[2018-08-03] MEDS: NOREPINEPHRINE 16 MG in IV D5W 500 ML IV PRN (17:35)
--- NOTE | 2018-08-03 19:07 | NUR ---
report given to Taylor BUSTAMANTE for RAMON
[2018-08-03] MEDS: COLISTIMETHATE SODIUM 100 MG in IV NS 0.9% 50 ML IV SCH (19:30)
[2018-08-03] MEDS: IV NS 0.9% 100 ML IV PRN (19:31)
[2018-08-03] MEDS: ATORVASTATIN 40 MG TABLET GT SCH (21:46)
[2018-08-03] MEDS: INSULIN GLARGINE, 100 UNIT/ML CARTRIDGE SQ SCH (21:50)
[2018-08-04] VITALS (115 sets, daily range): BP systolic 73–153; BP diastolic 36–121
[2018-08-04] MEDS: INSULIN REGULAR, HUMAN 100 UNIT/ML 3 ML VIAL SQ PRN (00:22)
[2018-08-04] MEDS: BLOOD SUGAR DIAGNOSTIC 1 EACH STRIP IN SCH ×4 (00:26→18:20)
--- NOTE | 2018-08-04 02:00 | NUR ---
PRICING ASSOCIATE PT NOTED WITH LARGE BROWN SPUTUM.
[2018-08-04] MEDS: NEPRO 1,000 ML BOTTLE GT SCH ×2 (03:32→18:20)
[2018-08-04] MEDS: HYDROCODONE/APAP 5/325MG 1 EACH TABLET PO PRN (03:33)
[2018-08-04] MEDS: METRONIDAZOLE 500 MG TABLET PO SCH ×3 (05:25→21:19)
--- NOTE | 2018-08-04 05:55 | NUR ---
SAND WHEELER PT NOTED WITH LOW GLUCOSE LEVELS; CHECKED SEVERAL TIMES PT IS A DIFFICULT STICK. ADMINISTERED D50. BLOOD DRAWN BY LAB. MADE AWARE. CONTINUE TO MONITOR.
--- NOTE | 2018-08-04 06:00 | NUR ---
ART MODEL FOUND PTS G TUBE COMPLETELY OUT OF HIS STOMACH WITH BALLOON INTACT. PALOMARES PUT IN PLACE. APPLIED DRESSING. DR WIGGINS MADE AWARE WITH ORDERS TO CONTACT GI DURING DAY SHIFT.
[2018-08-04] MEDS: ASCORBIC ACID 500 MG TABLET PO SCH (09:00)
[2018-08-04] MEDS: ALLOPURINOL 100 MG TABLET GT SCH (09:00)
[2018-08-04] MEDS: LACTOBACILLUS RHAMNOSUS GG 1 EACH CAP.SPRINK GT SCH ×2 (09:00→18:22)
[2018-08-04] MEDS: TOPIRAMATE 25 MG TABLET GT SCH (09:00)
[2018-08-04] MEDS: MULTIVITAMINS,THERAGRAN 1 UDTAB TABLET GT SCH (09:00)
[2018-08-04] MEDS: MUPIROCIN OINT 2% 22 GM TUBE SCH ×2 (09:49→21:23)
[2018-08-04] MEDS: Z GUARD REMEDY 2 OZ OINT TP PRN (09:49)
[2018-08-04] MEDS: MIDODRINE HCL (5MG) 5 MG TABLET GT SCH ×3 (10:43→18:21)
--- NOTE | 2018-08-04 11:20 | NUR ---
RITO SMITH NP NOTIFIED THAT GTUBE WAS NOTED TO BE OUT OF PLACE DURING NIGHT NOTIFIED THAT PALOMARES CATHETER IS IN PLACE, WELL BROWNISH DRAINAGE LEAKING OF THE SITE GI CONSULT ORDERED PER RITO SMITH NP, IV D5 NS AT 50 CC/HOUR- PRN , VERBAL READBACK DONE NOTIFIED THAT HR 120-130S
[2018-08-04] MEDS: IV D5/ 0.9% NACL 1,000 ML IV PRN (11:56)
[2018-08-04] MEDS: DAKINS QUARTER STRENGTH (0.125%) 480 ML BOTTLE TOP SCH (12:08)
--- NOTE | 2018-08-04 12:10 | NUR ---
PER DR BACH,TYLENOL 650 MG RECTAL SUPPOSITORY PRN VERBAL READBACK DONE
[2018-08-04] MEDS ORDERED: ACETAMINOPHEN 650 MG/SUPP.RECT RC PRN (12:30)
[2018-08-04 13:01] LABS: BASOPHILS # (AUTO) 0.1 /CMM (0.0-0.2); BASOPHILS % (AUTO) 0.4 % (0.0-2.0); EOSINOPHILS % (AUTO) 2.4 % (0.0-6.0); HEMATOCRIT 21 % (39-51); LYMPHOCYTES # (AUTO) 3.2 /CMM (0.8-4.8); LYMPHOCYTES % (AUTO) 8.9 % (20.0-44.0); MEAN CORPUSCULAR HGB CONC 31 g/dl (31.0-36.0); MEAN CORPUSCULAR VOLUME 87 fL (80-96); MONOCYTES # (AUTO) 2.1 /CMM (0.1-1.30); MONOCYTES % (AUTO) 5.9 % (2.0-12.0); NEUTROPHILS # (AUTO) 29.3 /CMM (1.8-8.9); NEUTROPHILS % (AUTO) 82.4 % (43.0-81.0); PLATELET COUNT (AUTO) 483 /CMM (150-450); RDW COEFFICIENT OF VARIATION 19.5 (11.5-15.0); RED BLOOD CELL COUNT(AUTO) 2.43 MIL/uL (4.5-6.0)
[2018-08-04 13:03] LABS: WHITE BLOOD COUNT (AUTO) 35.6 K/uL (4.3-11.0)
[2018-08-04 13:04] LABS: HEMOGLOBIN 6.5 g/dL (13.5-17.5)
[2018-08-04 13:15] LABS: CALCIUM, SERUM 10.5 mg/dL (8.5-10.1); CARBON DIOXIDE 29 mmol/L (21-32); CHLORIDE 91 mmol/L (98-107); CREATININE 6.8 mg/dL (0.6-1.3); GLUCOSE 171 mg/dL (74-106); PHOSPHORUS 5.6 mg/dL (2.5-4.9); POTASSIUM 4.5 mmol/L (3.5-5.1); SODIUM SERUM 134 mmol/L (136-145)
[2018-08-04 13:16] LABS: UREA NITROGEN, BLOOD 123 mg/dL (7-18)
[2018-08-04 13:18] LABS: EOSINOPHILS % (MANUAL) 3 % (0-4); LYMPHOCYTES % (MANUAL) 7 % (16-48); MONOCYTES % (MANUAL) 6 % (0-11.0); NEUTROPHILS % (MANUAL) 84 (42-76)
--- NOTE | 2018-08-04 13:45 | NUR ---
RITO SMITH NP, NOTIFIED OF CBC AND BMP RESULTS PER HER ORDER- 1 UNIT OF PRBC SPOKE TO MARYELLEN SOTELO, CONSENTED TO TO THE TRANSFUSION
--- NOTE | 2018-08-04 13:53 | NUR ---
NOTIFIED RITO SMITH THAT LEVOPED HAS BEEN TITRATED TO 18 MCG/MIN ALSO NOTIFIED THAT SMALL AMOUNT OF BLOOD NOTED COMING OUT OF GTUBE
--- NOTE | 2018-08-04 14:02 | NUR ---
18 TELUGU GTUBE INSERTED AT BEDSIDE BY DR OLVERA PER HIS ORDERS, LIVIA KEEP PATIENT NPO- START FEEDING AT 1800
[2018-08-04] MEDS ORDERED: DIATR MEGLU/DIATRIZOATE SODIUM 30 ML BOTTLE (GASTROGRAPHIN) ONE (14:08)
[2018-08-04] MEDS: NOREPINEPHRINE 16 MG in IV D5W 500 ML IV PRN (14:17)
--- NOTE | 2018-08-04 15:47 | NUR ---
BLOOD TRANSFUSION INITIATED AT 1530- AT 60 ML/HOUR VS RECORDED REMAINED WITH PATIENT FOR INITIAL 15 MINS- NO REACTIONS NOTED. VS TEMP 98.2 BP 100/44 WITH HR OF 108, RR 26 MANUALLY NO SKIN CHANGES NOTED RATE INCREASED TO 75 ML/HOUR WILL CONTINUE TO MONITOR
--- NOTE | 2018-08-04 18:03 | NUR ---
TRANSFUSION ENDED AT 1800 PATIENT TOLERATED IT WELL VS 117/49, TEMP 97.9, SPO2 AT 99, HR OF 102, RR OF 20 BLOOD TRANSFUSION ADVANCED AT 1615 TO 100 ML/HOUR, ADVANCED AT 1656 AT 125 ML/HOUR SEE VS SECTION
--- NOTE | 2018-08-04 19:15 | NUR ---
ICU/RN RECEIVED REPORT FR DAY SHIFT RN,PT ON VENT VIA ORAL ETT,ON DIPRIVAN DRIP AT 50MCG/KG/MIN.RESP RATE OF 35/MINUTE,GRIMACES WHEN SUCTIONED.DOES NOT OPEN EYES TO COMMAND,DOES NOT TRACK.SUCTIONED FOR MODERATE TO LARGE AMOUNT THICK YELLOW TO HUTCHINSON SECRETIONS W/ SALINE LAVAGE.LARGE AMT.ORAL SECRETIONS. Addendum: 08/04/18 at 2246 by MADAY MENDOZA RN YAMILET PT
--- NOTE | 2018-08-04 19:30 | NUR ---
ICU/RN RECEIVED PT AWAKE TRACKS OCCASIONALLY,DOES NOT FOLLOW COMMANDS .ON T-PIECE 28 %SUCTIONED FOR LARGE AMOUNT THIN WHITE TO PALE YELLOW SECRETIONS.ON LEVOPHED DRIP AT 16 MCG/MIN 116-130MMHG.TOLERATING TUBE FEEDING AT 20 ML/HR.COLOSTOMY BAG INTACT,W/ BROWNISH LIQUID STOOL.
[2018-08-04] MEDS: COLISTIMETHATE SODIUM 100 MG in IV NS 0.9% 50 ML IV SCH (20:21)
[2018-08-04] MEDS: ATORVASTATIN 40 MG TABLET GT SCH (21:22)
[2018-08-04] MEDS: INSULIN GLARGINE, 100 UNIT/ML CARTRIDGE SQ SCH (22:10)
[2018-08-05] VITALS (80 sets, daily range): BP systolic 74–154; BP diastolic 33–78
[2018-08-05] MEDS: BLOOD SUGAR DIAGNOSTIC 1 EACH STRIP IN SCH ×4 (00:04→17:47)
[2018-08-05] MEDS: INSULIN REGULAR, HUMAN 100 UNIT/ML 3 ML VIAL SQ PRN ×3 (00:07→14:07)
[2018-08-05 04:35] LABS: BASOPHILS % (AUTO) 0.1 % (0.0-2.0); EOSINOPHILS % (AUTO) 2.7 % (0.0-6.0); HEMATOCRIT 24 % (39-51); HEMOGLOBIN 7.5 g/dL (13.5-17.5); LYMPHOCYTES # (AUTO) 2.3 /CMM (0.8-4.8); LYMPHOCYTES % (AUTO) 6.1 % (20.0-44.0); MEAN CORPUSCULAR HGB CONC 31 g/dl (31.0-36.0); MEAN CORPUSCULAR VOLUME 88 fL (80-96); MONOCYTES # (AUTO) 1.6 /CMM (0.1-1.30); MONOCYTES % (AUTO) 4.3 % (2.0-12.0); NEUTROPHILS # (AUTO) 32.9 /CMM (1.8-8.9); NEUTROPHILS % (AUTO) 86.8 % (43.0-81.0); PLATELET COUNT (AUTO) 502 /CMM (150-450); RDW COEFFICIENT OF VARIATION 19.2 (11.5-15.0); RED BLOOD CELL COUNT(AUTO) 2.71 MIL/uL (4.5-6.0)
[2018-08-05] MEDS: METRONIDAZOLE 500 MG TABLET PO SCH ×3 (04:51→20:35)
[2018-08-05 04:54] LABS: CALCIUM, SERUM 10.7 mg/dL (8.5-10.1); CARBON DIOXIDE 31 mmol/L (21-32); CHLORIDE 92 mmol/L (98-107); GLUCOSE 225 mg/dL (74-106); MAGNESIUM 2.2 mg/dL (1.8-2.4); PHOSPHORUS 6.7 mg/dL (2.5-4.9); POTASSIUM 4.7 mmol/L (3.5-5.1); SODIUM SERUM 135 mmol/L (136-145)
[2018-08-05 05:04] LABS: UREA NITROGEN, BLOOD 123 mg/dL (7-18)
[2018-08-05 05:15] LABS: WHITE BLOOD COUNT (AUTO) 37.9 K/uL (4.3-11.0)
[2018-08-05] MEDS: IV NS 0.9% 100 ML IV PRN (05:34)
--- NOTE | 2018-08-05 06:00 | NUR ---
ICU/RN REMAINS ON LEVOPHED DRIP.MONITOR SR W/PAC'S.EYES OPEN.WOUND CARE DONE TRACH CARE DONE. TOLERATING TF WELL.
[2018-08-05 06:20] LABS: BAND % (MANUAL) 2 % (0.0-5.0); LYMPHOCYTES % (MANUAL) 3 % (16-48); MONOCYTES % (MANUAL) 2 % (0-11.0); NEUTROPHILS % (MANUAL) 93 (42-76)
--- NOTE | 2018-08-05 07:25 | NUR ---
SPECIAL WEAPONS AND TACTICS OFFICER RECEIVED PATIENT FROM THE PREVIOUS SHIFT. PATIENT IS IN BED. RESTING COMFORTABLY. NO ACUTE DISTRESS NOTED. ON COOL AEROSOL. STABLE VITAL SINGS. TURNED AND REPOSITIONED FOR COMFORT AND WOUND PREVENTION. WILL CONTINUE TO MONITOR AND PROVIDE CARE.
[2018-08-05] MEDS: MIDODRINE HCL (5MG) 5 MG TABLET GT SCH ×3 (08:46→17:48)
[2018-08-05] MEDS: ALLOPURINOL 100 MG TABLET GT SCH (08:46)
[2018-08-05] MEDS: MULTIVITAMINS,THERAGRAN 1 UDTAB TABLET GT SCH (08:46)
[2018-08-05] MEDS: TOPIRAMATE 25 MG TABLET GT SCH (08:46)
[2018-08-05] MEDS: LACTOBACILLUS RHAMNOSUS GG 1 EACH CAP.SPRINK GT SCH ×2 (08:46→17:48)
[2018-08-05] MEDS: DAKINS QUARTER STRENGTH (0.125%) 480 ML BOTTLE TOP SCH (08:47)
[2018-08-05] MEDS: MUPIROCIN OINT 2% 22 GM TUBE SCH ×2 (08:47→20:36)
[2018-08-05] MEDS: ASCORBIC ACID 500 MG TABLET PO SCH (08:48)
[2018-08-05] MEDS: NOREPINEPHRINE 16 MG in IV D5W 500 ML IV PRN ×2 (17:57→20:25)
[2018-08-05] MEDS: COLISTIMETHATE SODIUM 100 MG in IV NS 0.9% 50 ML IV SCH (19:43)
[2018-08-05] MEDS ORDERED: PHENYLEPHRINE 10 MG/ML VIAL ONE (19:44)
--- NOTE | 2018-08-05 19:45 | NUR ---
DEICER KIT ASSEMBLER NOTE RECEIVED PT ASLEEP IN BED ON COOL AEROSOL AND SATURATING WELL. NOTED WITH BP IN THE 70-80'S ON LEVOPHED. LEVO DRIP TITRATED TO INCREASE BP. WITH ORDER TO START OLIVIA DRIP IF BP DOES NOT INCREASE TO SBP>90 WITH ONLY LEVOPHED. TEMPERATURE OF 103.3 AXILLARY. COOLING MEASURES IN PLACE. WILL CONTINUE TO MONITOR.
[2018-08-05] MEDS: PHENYLEPHRINE 80 MG in IV D5W 250 ML IV PRN (19:51)
--- NOTE | 2018-08-05 20:32 | NUR ---
RECEIVED PT TRACHED ON COOL AEROSOL 35%. NO SOB. SX'D FOR MOD AMT OF THIN WHITE SECRETIONS. WILL CONTINUE TO MONITOR. Addendum: 08/05/18 at 2032 by BIRGIT BYRNE RT Amended: Links added.
[2018-08-05] MEDS: ATORVASTATIN 40 MG TABLET GT SCH (21:58)
[2018-08-05] MEDS: ACETAMINOPHEN 325 MG TABLET PO PRN (21:58)
[2018-08-05] MEDS: INSULIN GLARGINE, 100 UNIT/ML CARTRIDGE SQ SCH (21:59)
[2018-08-05] MEDS: HYDROCODONE/APAP 5/325MG 1 EACH TABLET PO PRN (23:13)
[2018-08-06] VITALS (64 sets, daily range): BP systolic 80–124; BP diastolic 30–79
[2018-08-06] MEDS: BLOOD SUGAR DIAGNOSTIC 1 EACH STRIP IN SCH ×5 (00:22→23:21)
[2018-08-06] MEDS: INSULIN REGULAR, HUMAN 100 UNIT/ML 3 ML VIAL SQ PRN ×3 (00:22→23:19)
[2018-08-06] MEDS: IV D5/ 0.9% NACL 1,000 ML IV PRN ×2 (03:16→22:52)
[2018-08-06] MEDS: NEPRO 1,000 ML BOTTLE GT SCH (04:58)
[2018-08-06] MEDS ORDERED: NOREPINEPHRINE 4 MG/4 ML AMPUL IV ONE ×3 (04:58→05:06)
[2018-08-06] MEDS: METRONIDAZOLE 500 MG TABLET PO SCH ×3 (05:00→20:20)
[2018-08-06] MEDS: NOREPINEPHRINE 16 MG in IV D5W 500 ML IV PRN ×2 (05:16→16:02)
--- NOTE | 2018-08-06 07:00 | NUR ---
WELFARE ANALYST NOTE PT REMAINED STABLE DURING SHIFT. REMAINS ON LEVO AND OLIVIA DRIP AT THIS TIME. HOB ELEVATED. ALL NEEDS ATTENDED TO PROMPTLY. KEPT CLEAN AND DRY. SUCTIONED NEEDED. WILL ENDORSE TO NEXT SHIFT FOR CONTINUITY OF CARE.
[2018-08-06] MEDS: MULTIVITAMINS,THERAGRAN 1 UDTAB TABLET GT SCH (08:08)
[2018-08-06] MEDS: LACTOBACILLUS RHAMNOSUS GG 1 EACH CAP.SPRINK GT SCH ×2 (08:08→17:32)
[2018-08-06] MEDS: TOPIRAMATE 25 MG TABLET GT SCH (08:08)
[2018-08-06] MEDS: ALLOPURINOL 100 MG TABLET GT SCH (08:09)
[2018-08-06] MEDS: ASCORBIC ACID 500 MG TABLET PO SCH (08:09)
[2018-08-06] MEDS: MIDODRINE HCL (5MG) 5 MG TABLET GT SCH ×3 (08:09→17:33)
[2018-08-06] MEDS: MUPIROCIN OINT 2% 22 GM TUBE SCH ×2 (08:10→20:20)
[2018-08-06] MEDS: DAKINS QUARTER STRENGTH (0.125%) 480 ML BOTTLE TOP SCH (08:11)
[2018-08-06] MEDS: Z GUARD REMEDY 2 OZ OINT TP PRN (08:11)
--- NOTE | 2018-08-06 08:30 | NUR ---
ICU/RN: Spoke with ASHLEIGH Ibarra; pt's son to arrive 1400 this pm. Requested staff to call regarding hospice once son arrives. Danna Toure NP and charge master specialist updated.
--- NOTE | 2018-08-06 11:30 | NUR ---
ICU/RN: Blood glucose checked - 184mg/dl, pt not tolerating TF with residuals > 200ml. GTF held; will reassess at later time.
--- NOTE | 2018-08-06 12:00 | NUR ---
ICU/RN: Danna Toure, DIRECTOR OF AGRONOMY rounds; updated on pt status. Aware of plan for hospice this pm
[2018-08-06] MEDS: ACETAMINOPHEN 325 MG TABLET PO PRN (12:03)
--- NOTE | 2018-08-06 14:30 | NUR ---
ICU/RN: Danna Toure NP notified that family at bedside.
--- NOTE | 2018-08-06 15:45 | NUR ---
ICU/RN: Pt's family at bedside, spoke with DPOA, requesting to start hospice tomorrow am; pt's son wishes to bring mother to hospital to "say goodbye." ALESSIO DPOA. [employer] professor and TOBI Toure notified.
[2018-08-06] MEDS: PHENYLEPHRINE 80 MG in IV D5W 250 ML IV PRN (16:59)
--- NOTE | 2018-08-06 18:00 | NUR ---
ICU/RN: front worker at bedside for eval. Informed that family and DPOA requested to start hospice in AM when is at the bedside.
--- NOTE | 2018-08-06 19:06 | NUR ---
ICU/RN: Pt in stable condition, no distress noted. For hospice in am. Care endorsed to PM RN for RAMON.
[2018-08-06] MEDS: COLISTIMETHATE SODIUM 100 MG in IV NS 0.9% 50 ML IV SCH (19:48)
--- NOTE | 2018-08-06 20:00 | NUR ---
AUTO AIR CONDITIONING INSTALLER - NOTES - RECEIVED PT ASLEEP IN BED ON COOL AEROSOL 8L, 35% AND SATURATING WELL. PT IS ON LEVOPHED DRIP AND OLIVIA DRIP TITRATED TO KEEP SBP > 90 PT TURNED AND REPOSITIONED Q2H FOR COMFORT. WILL CONTINUE TO MONITOR.
[2018-08-06] MEDS: ATORVASTATIN 40 MG TABLET GT SCH (22:15)
[2018-08-06] MEDS: INSULIN GLARGINE, 100 UNIT/ML CARTRIDGE SQ SCH (22:17)
[2018-08-07] VITALS (62 sets, daily range): BP systolic 64–124; BP diastolic 16–71
--- NOTE | 2018-08-07 | NUR ---
PEG TUBE RESIDUALS 360 ML, TUBE FEEDING PLACED ON HOLD, WILL CONTINUE TO MONITOR
[2018-08-07] MEDS: PHENYLEPHRINE 80 MG in IV D5W 250 ML IV PRN ×2 (03:27→10:18)
[2018-08-07] MEDS: METRONIDAZOLE 500 MG TABLET PO SCH ×2 (04:06→13:05)
[2018-08-07] MEDS: NOREPINEPHRINE 16 MG in IV D5W 500 ML IV PRN (05:05)
[2018-08-07] MEDS: BLOOD SUGAR DIAGNOSTIC 1 EACH STRIP IN SCH ×2 (06:47→12:56)
[2018-08-07] MEDS: INSULIN REGULAR, HUMAN 100 UNIT/ML 3 ML VIAL SQ PRN ×2 (06:52→13:03)
--- NOTE | 2018-08-07 07:10 | NUR ---
RN INITIAL NOTES: Rec'd pt on bed, not in any distress, obtunded. On T-piece at 35%, 8lpm, sating at 97%. On telemonitor, ST 114bpm. Has BRENNON PICC line, TLC w/ Levo drip x 26mcg/min, Ethan drip x 200mcg/min, & D5Ns x 50 cc/hr all infusing well w/ no s/sx of infection/infiltration noted. Has GT, clamped at this time, noted 550cc gastric residuals. Isolation prec observed. Provided comfort & safety measures. Bed kept low & in locked pos. Call light placed w/in reach. Will cont to monitor & attend pt needs.
[2018-08-07] MEDS: LACTOBACILLUS RHAMNOSUS GG 1 EACH CAP.SPRINK GT SCH (08:31)
[2018-08-07] MEDS: ASCORBIC ACID 500 MG TABLET PO SCH (08:31)
[2018-08-07] MEDS: ALLOPURINOL 100 MG TABLET GT SCH (08:31)
[2018-08-07] MEDS: MULTIVITAMINS,THERAGRAN 1 UDTAB TABLET GT SCH (08:31)
[2018-08-07] MEDS: Z GUARD REMEDY 2 OZ OINT TP PRN (08:32)
[2018-08-07] MEDS: MIDODRINE HCL (5MG) 5 MG TABLET GT SCH ×2 (08:32→13:06)
[2018-08-07] MEDS: MUPIROCIN OINT 2% 22 GM TUBE SCH (08:32)
[2018-08-07] MEDS: DAKINS QUARTER STRENGTH (0.125%) 480 ML BOTTLE TOP SCH (08:32)
[2018-08-07] MEDS: TOPIRAMATE 25 MG TABLET GT SCH (08:35)
--- NOTE | 2018-08-07 09:35 | NUR ---
Called ASHLEIGH Suma (nion license of [facility]) [phone] re: transitioning to hospice care. Per Suma, will be here today then pt will be DC from ICU, admit to hospice.
--- NOTE | 2018-08-07 11:47 | NUR ---
Pt's family at bedside, including the .
--- NOTE | 2018-08-07 13:00 | NUR ---
Per pt's sister Carito, they are okay to DC pt to Hospice.
--- NOTE | 2018-08-07 14:15 | NUR ---
TOBI Blanchard made aware that family are okay to DC pt to Hospice Care.
--- NOTE | 2018-08-07 15:06 | NUR ---
Pt seen & examined by TOBI Blanchard. DC orders carried out. DEMI CHEF was able to talk to Carito at bedside.
--- NOTE | 2018-08-07 15:15 | NUR ---
DC documents signed by sister Carito. Per sister, pt doesn't have any belongings at bedside.
--- NOTE | 2018-08-07 15:25 | NUR ---
Called [facility], spoke w/ Kelley re: admitting MD & DX once on hospice. Will give us callback.
--- NOTE | 2018-08-07 16:04 | NUR ---
Transferred care to [facility]. Pt for [facility]. Awaiting bed and admission process.
== END 2018-08-07 15:54 | disposition hospice, home (50) | DRG 907 ==
LOC: ER 16:07 → TELE1 19:38 → TELE-TD 19:52 → ICU 07-18 00:57 → TELE-TD 07-20 20:00 → TELE1 07-22 12:55 → ICU 07-31 11:00
PROVIDERS: ADMIT Internal Medicine; ATTEND Internal Medicine
PROC: 02HV33Z Insertion of Infusion Device into Superior Vena Cava, Percutaneous Approach (ICD-10-PCS; 2018-07-18)
PROC: B548ZZA Ultrasonography of Superior Vena Cava, Guidance (ICD-10-PCS; 2018-07-18)
PROC: 5A1D70Z Performance of Urinary Filtration, Intermittent, Less than 6 Hours Per Day (ICD-10-PCS; 2018-07-18)
PROC: 0KBP0ZZ Excision of Left Hip Muscle, Open Approach (ICD-10-PCS; principal; 2018-07-19)
PROC: 0KBN0ZZ Excision of Right Hip Muscle, Open Approach (ICD-10-PCS; principal; 2018-07-19)
PROC: 5A1D70Z Performance of Urinary Filtration, Intermittent, Less than 6 Hours Per Day (ICD-10-PCS; 2018-07-20)
PROC: 5A1D70Z Performance of Urinary Filtration, Intermittent, Less than 6 Hours Per Day (ICD-10-PCS; 2018-07-22)
PROC: 5A1D70Z Performance of Urinary Filtration, Intermittent, Less than 6 Hours Per Day (ICD-10-PCS; 2018-07-24)
PROC: B546ZZA Ultrasonography of Right Subclavian Vein, Guidance (ICD-10-PCS; 2018-07-25)
PROC: 05H533Z Insertion of Infusion Device into Right Subclavian Vein, Percutaneous Approach (ICD-10-PCS; 2018-07-25)
PROC: 5A1D70Z Performance of Urinary Filtration, Intermittent, Less than 6 Hours Per Day (ICD-10-PCS; 2018-07-26)
PROC: 30233N1 Transfusion of Nonautologous Red Blood Cells into Peripheral Vein, Percutaneous Approach (ICD-10-PCS; 2018-07-26)
PROC: 5A1D70Z Performance of Urinary Filtration, Intermittent, Less than 6 Hours Per Day (ICD-10-PCS; 2018-07-28)
PROC: 0KBN0ZZ Excision of Right Hip Muscle, Open Approach (ICD-10-PCS; 2018-07-30)
PROC: 0KBP0ZZ Excision of Left Hip Muscle, Open Approach (ICD-10-PCS; 2018-07-30)
DX: T85.79XA Infection and inflammatory reaction due to other internal prosthetic devices, implants and grafts, initial encounter (principal); L89.324 Pressure ulcer of left buttock, stage 4; L89.314 Pressure ulcer of right buttock, stage 4; L89.154 Pressure ulcer of sacral region, stage 4; G93.41 Metabolic encephalopathy; N18.6 End stage renal disease; R65.21 Severe sepsis with septic shock; J18.9 Pneumonia, unspecified organism; R65.20 Severe sepsis without septic shock; A41.50 Gram-negative sepsis, unspecified; I33.0 Acute and subacute infective endocarditis; I12.0 Hypertensive chronic kidney disease with stage 5 chronic kidney disease or end stage renal disease; J96.10 Chronic respiratory failure, unspecified whether with hypoxia or hypercapnia; Z99.11 Dependence on respirator [ventilator] status; E87.0 Hyperosmolality and hypernatremia; D62 Acute posthemorrhagic anemia; J98.11 Atelectasis; B37.49 Other urogenital candidiasis; Z99.2 Dependence on renal dialysis; F03.90 Unspecified dementia, unspecified severity, without behavioral disturbance, psychotic disturbance, mood disturbance, and anxiety; R13.10 Dysphagia, unspecified; Z93.1 Gastrostomy status; Z93.0 Tracheostomy status; E11.22 Type 2 diabetes mellitus with diabetic chronic kidney disease; E11.649 Type 2 diabetes mellitus with hypoglycemia without coma; Z89.612 Acquired absence of left leg above knee; Z89.611 Acquired absence of right leg above knee; Z93.3 Colostomy status; Z51.5 Encounter for palliative care; Z66 Do not resuscitate; Z79.4 Long term (current) use of insulin; Z79.899 Other long term (current) drug therapy; E11.42 Type 2 diabetes mellitus with diabetic polyneuropathy; D63.8 Anemia in other chronic diseases classified elsewhere; S31.010A Laceration without foreign body of lower back and pelvis without penetration into retroperitoneum, initial encounter; X58.XXXA Exposure to other specified factors, initial encounter; Y92.9 Unspecified place or not applicable; E87.6 Hypokalemia; Y84.6 Urinary catheterization as the cause of abnormal reaction of the patient, or of later complication, without mention of misadventure at the time of the procedure; Y92.129 Unspecified place in nursing home as the place of occurrence of the external cause; M85.9 Disorder of bone density and structure, unspecified; Z16.24 Resistance to multiple antibiotics; T83.9XXA Unspecified complication of genitourinary prosthetic device, implant and graft, initial encounter
CPT/HCPCS: 31720; 36415; 36569; 36600; 71045-TC; 74018; 80048-TC; 80053-TC; 80061-TC; 80076-TC; 80202-TC; 81000-TC; 82803-TC; 82947-TC; 82962-TC; 83605-TC; 83735-TC; 84100-TC; 84484-TC; 85025-TC; 85730-TC; 86850-TC; 86921-TC; 87040-TC; 87070-TC; 87081-TC; 87086-TC; 87186-TC; 90935-TC; 93307-TC; 93971-TC; 94640-TC; 94664-TC; 94760-TC; 94799-TC; 99082-TC; A4216; A4606; A6253; A6402; A6403; A7526; J0770; J0885; J1450; J1815; J2185; J2248; J2370; J2543; J2916; J3260; J3370; J3490; J7030; J7040; J7042; J7050; J7060; P9016-BL; P9047; Q9963; Z7610

== ENCOUNTER 2018-08-07 15:56 | Inpatient (IN) | payer OTHER ==
[~2018-08-07] VITALS: Ht 177.8 cm; Wt 64.0 kg
[~2018-08-07 15:56] MED LIST: ALLO100T GT; ATOR40TA GT; INSU100I19 SQ; INSU100V11 SQ; MIDO10TA GT; TOPI25TA49 GT
--- NOTE | 2018-08-07 16:06 | NUR ---
RN INITIAL NOTES RECEIVED REPORT FROM TONY BUSTAMANTE. PATIENT ADMITTED TO [facility] PER DR BRANDON PARKER'S ORDERS PER TONY, VISITED AND DPOA AWARE , CRYSTAL PER ORDERS, PATIENT TO BE NPO PER DR PARKER'S ORDERS, DISCONTINUE ALL VASOPRESSORS AFTER VISITS PER HIS ORDERS DISCONTINUE TUBE FEEDING AFTER HIS VISITS DISCONTINUE ALL PO MEDICATIONS
--- NOTE | 2018-08-07 16:17 | NUR ---
PER DR BRANDON PARKER, PLACE PATIENT ON DNR/ COMFORT MEASURES VERBAL READBACK DONE CONFIRMED ADMISSION WITH
--- NOTE | 2018-08-07 16:29 | NUR ---
TERI NOTE: RIGHT AND LOWER EXTREMITIES - AKA Addendum: 08/07/18 at 1644 by DELFINA WINTERS RN Amended: Links added.
[2018-08-07] MEDS ORDERED: LORAZEPAM INJ 2 MG/ML VIAL IVP PRN (16:30)
[2018-08-07] MEDS ORDERED: MORPHINE SULFATE INJ 2 MG/ML DISP.SYRIN IV PRN (16:30)
[2018-08-07 16:40] VITALS: BP 62/25
--- NOTE | 2018-08-07 17:40 | NUR ---
PER DR PARKER-- MORPHINE 2 MG IVP Q 15 MINS FOR PRN , SOB, PAIN AND LABORED BREATHING SCOPALAMINE TRANSDERMAL 1 MG Q3 DAYS PRN FOR SECRETIONS. PHARMACY UNABLE TO PROVIDE MEDICATION, PHARMACY AWAITING TO GET HOLD OF DR PARKER ATIVAN 1 MG IVP Q 2 HOURS PRN FOR AGITATION CONTINUE WOUND CARE ORDER SHEET FAXED TO PHARMACY PLACED IN CHART NAOMY ZAZUETA, NOTIFIED OF COMFORT MEASURES ONLY ORDER
--- NOTE | 2018-08-07 18:05 | NUR ---
received pt. via bed hooked up to o2 and aerosol by resp. tx.vs taken,bp extremely low,unable to obtain pox.pt. obtunded,skin warm and dry,side rails up.awaiting all transfer orders from [facility].pt. 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
[2018-08-07 18:10] VITALS: BP 43/21
--- NOTE | 2018-08-07 18:15 | NUR ---
PATIENT TRANSFERRED TO [facility] REPORT GIVEN TO ROBBY BISHOP PATIENT RESTING IN BED. NONLABORED BREATHING NOTED ON COOL AEROSOL ON 8 L FIO2 35%. NO PAIN NOTED AT THE MOMENT. PICCLINE ON RIGHT UPPER ARM PATENT AND INTACT. GTUBE INTACT, FEEDING HELD AT THE MOMENT PER ORDERS. AV SHUNT, NONFUNCTIONAL ON LEFT ARM BED IN LOWEST LOCKED POSITION. COLOSTOMY BAG INTACT. CALL LIGHT WITHIN REACH PICTURES NOT RETAKEN UPON RE-ADMISSION FOR HOSPICE PER FAMILY MEMBER'S REQUEST TO KEEP PATIENT COMFORTABLE PATIENT ON ISOLATION FOR MRSA IN THE [place]LL ACINOBACTER IN THE BLOOD
--- NOTE | 2018-08-07 18:30 | NUR ---
rn in to rm. 2 visitors present rn checking again for px.and obtained 95%.
--- NOTE | 2018-08-07 18:30 | NUR ---
DR MAS NOTIFIED OF ADMISSION UNDER BRANDON PARKER
[2018-08-07] MEDS ORDERED: SCOPOLAMINE HBR 1 EA PATCH.TD72 TD PRN (19:00)
--- NOTE | 2018-08-07 19:15 | NUR ---
called in to rm. by visitors questioning pt. status,rn obtained no pulse,no bp,pox negligent.attempted again to get bp,but unable.discharge rn called in to rm.
--- NOTE | 2018-08-07 19:20 | NUR ---
pt. pronounced.by athletic training internship nino.visitors consoled.
--- NOTE | 2018-08-07 19:35 | NUR ---
[facility] hospice notified.rn spoke with rn loss prevention detective pennie.informed him that pt. at 1920 pm.
--- NOTE | 2018-08-07 19:37 | NUR ---
report given to oncoming cayetano almaraz.nandini lee notified that pt. by day shift charge master coordinator nino.
--- NOTE | 2018-08-07 19:37 | NUR ---
RN Notes FILTER ASSEMBLER Santo Null notified by the dayshift pick up attendant, Nino of pt expiring today at 1920.
--- NOTE | 2018-08-07 19:40 | NUR ---
RN NOTES HILARIO Bhat notified of pt passing today at 1920. Per family's request (sister of pt & niece) they wanted to be the ones to notify the son Vicente of his father passing.
--- NOTE | 2018-08-07 20:05 | NUR ---
RN NOTES Called [facility] ([phone]) @[phone] to inform them of pt's . Spoke with Caroline on the phone. Case #[id number]. Due to pt's hx of dementia, pt does not qualify for organ donation.
--- NOTE | 2018-08-07 20:15 | NUR ---
RN NOTES pt had no personal belongings with him in the room. pt's sister (Carito Gant) signed the form. Carito's #: .
--- NOTE | 2018-08-07 21:25 | NUR ---
RN NOTES cleaned pt's body. placed into body bag. ID tags placed on pt's fingers due to pt having bilateral bka & two tags on the bag. Pt's ID wrist band still on wrist. PICC line removed and covered area with gauze and tape. Trach was not removed. Gtube was not removed. Colostomy bag was not removed.
--- NOTE | 2018-08-07 21:30 | NUR ---
RN NOTES called security for assistance in transferring the pt down to the morgue.
--- NOTE | 2018-08-07 21:36 | NUR ---
RN Notes pt being taken down to the morgue
[2018-08-08] MEDS ORDERED: DAKINS QUARTER STRENGTH (0.125%) 480 ML BOTTLE TOP SCH (09:00)
== END 2018-08-07 19:20 | disposition expired | DRG 871 ==
LOC: ICU 15:56 → MED 17:49
PROVIDERS: ADMIT Internal Medicine; ATTEND Internal Medicine
DX: A41.50 Gram-negative sepsis, unspecified (principal); L89.154 Pressure ulcer of sacral region, stage 4; N18.6 End stage renal disease; G93.40 Encephalopathy, unspecified; I12.0 Hypertensive chronic kidney disease with stage 5 chronic kidney disease or end stage renal disease; D62 Acute posthemorrhagic anemia; E87.0 Hyperosmolality and hypernatremia; Z51.5 Encounter for palliative care; Z66 Do not resuscitate; R65.20 Severe sepsis without septic shock; E11.22 Type 2 diabetes mellitus with diabetic chronic kidney disease; Z99.2 Dependence on renal dialysis; Z89.612 Acquired absence of left leg above knee; Z89.611 Acquired absence of right leg above knee; E87.6 Hypokalemia
CPT/HCPCS: 31720; 94640-TC